=== PATIENT | female | born 1955 | race Caucasian/White ===

== ENCOUNTER 2017-06-12 14:35 | Observation (INO) | payer OTHER, SELFPAY ==
[2017-06-12] VITALS (11 sets, daily range): BP systolic 82–106; BP diastolic 54–67; PULSE 45–81; RESP 16–18; TEMP 36.3–36.9; O2SAT 97–99; BMI 28.6; BMI 26.9
--- NOTE | 2017-06-12 15:07 | RAD_ITS ---
STUDY: X-RAY CHEST REASON FOR EXAM: Female, 62 years old. SYNCOPE TECHNIQUE: Single AP portable view of the chest. COMPARISON: None. FINDINGS: The lungs are clear and expanded. There is no demonstrated pleural abnormality. Normal size heart. Normal mediastinum and carlyle. Normal visualized pulmonary arteries. Normal visualized aortic arch and descending thoracic aorta. Normal visualized thoracic spine. Normal visualized ribs, clavicles, and shoulders. There is no demonstrated abnormality of the visualized soft tissue structures of the upper abdomen. RAD/Chest 1 View (Portable) IMPRESSION: Normal x-ray examination of the chest. Electronically Signed: Huber Hermosillo MD at 16:07 EDT Tel , Service support ,
--- NOTE | 2017-06-12 15:07 | CT_ITS ---
STUDY: CT BRAIN WITHOUT CONTRAST REASON FOR EXAM: Female, 62 years old. Syncopal episode and falling after ophthalmic surgery. Laceration above the left eyebrow. RADIATION DOSAGE (If Supplied By Facility): CTDIvol = ( 44.99 ) mGy, DLP = ( 779.24 ) mGycm TECHNIQUE: Transaxial CT imaging of the brain was performed without administration of intravenous contrast material. Individualized dose optimization techniques were used for this CT. COMPARISON: None. FINDINGS: Normal soft tissue structures. Normal calvarium. Normal size ventricles and extra-axial spaces for the patient's age. Normal white matter tracts of the cerebral hemispheres. Normal basal ganglia and thalami. Normal brainstem. Normal cerebellum. There is no intracranial hemorrhage. There are no findings of an acute ischemic infarction. Moderate mucosal thickening at the base of the right maxillary sinus CT/Brain/Head without Contrast IMPRESSION: Normal unenhanced CT scan of the brain. Moderate mucosal thickening at the base of the right maxillary sinus. Electronically Signed: Mare Levy MD at 15:56 EDT , Service support ,
--- NOTE | 2017-06-12 15:07 | EKG12_ITS ---
Test Reason : HYPOTENSION/FALL Blood Pressure : / mmHG Vent. Rate : 065 BPM Atrial Rate : 065 BPM P-R Int : 144 ms QRS Dur : 086 ms QT Int : 432 ms P-R-T Axes : 057 -11 021 degrees QTc Int : 449 ms Normal sinus rhythm Nonspecific ST and T wave abnormality Abnormal ECG Confirmed by RANDY SANCHEZ, JARED ([id number]), design editor REJI LAGUNAS ([id number] on 06/14/2017 3:39:55 PM Referred By: RYAN HODGES/MALGORZATA Confirmed By:JARED PADILLA MD
--- NOTE | 2017-06-12 15:16 | ED.DCSUM_ITS ---
- ER Visit Summary Date of Service: 06/12/17 Chief Complaint: Syncope History of Present Illness: The patient is a 62 F presents after syncopal episode. Patient had eye surgery this morning per Dr. Salmeron. She had bilateral blepharoplasty. She was given Versed and fentanyl during the procedure. She was sent home and advised to take Tylenol. Upon returning home patient became very dizzy. When she attempted to sit up she had a syncopal episode. Her states it took multiple attempts to get her to the bathroom. She had a syncopal episode while in the bathroom and fell off the toilet. She hit her head and has a laceration to the left eyebrow. She denies chest pain or shortness of breath. She has had similar symptoms in the past when her blood pressure drops she will pass out. She is not on any antihypertensive medications. No anticoagulants. No other complaints. Physical Examination: Blood pressure 82/58, HR 62, RR 18. Patient is afebrile. Alert no acute distress. HEENT exam bilateral eyelid incision clean dry and intact. 2.5 cm laceration to the left eyebrow. Neck is nontender Lungs are clear and equal bilaterally. Heart is regular rate and rhythm. Abdomen is soft nontender nondistended. Extremities are unremarkable. Skin is warm and dry. No focal neurologic deficit. Remainder of exam is unremarkable. Emergency Department Course and Treatment: Patient is given IV fluids. EKG is sinus rate of 65 with no acute ischemic changes. CBC, chemistries unremarkable. Troponin is negative. Orthostatics negative. CT head shows no acute process. Laceration was repaired under sterile conditions. Irrigated with saline, anesthetized with lidocaine. 5, 6-0 simple sutures were placed. She tolerated this well. Blood pressure improved to 90s systolic. Will discuss with the hospitalist for observation. Disposition: Observation Impression: Syncope, left eyebrow laceration, laceration repair This note was generated with [employer] dictation software. It may contain incorrect words, spelling, and punctuation that were not noted in review of the chart prior to signing ED Disposition - Plan for ED Patient: Chief Complaint: Hypotension Referrals: Tani Carlson MD [Primary Care Provider] -
[2017-06-12 15:27] LABS: Absolute Lymphocyte Count 1.32 X10^3/ul (0.83-4.51); Absolute Neutrophil Count 3.2 X10^3/uL (2.0-7.7); Basophil# 0.01 X10^3/uL; Basophil% 0.2 % (0-1); Eosinophil# 0.06 X10^3/uL; Eosinophils% 1.2 % (0-5); Hematocrit 43.5 % (37-47); Hemoglobin 14.8 g/dl (12.0-15.0); Lymphocyte # 1.32 X10^3/ul (4.0); Lymphocyte % 26.6 % (19-41); Mean Corpuscular Hgb 30.8 pg (27.0-32.0); Mean Corpuscular Volume 90.6 fL (81-99); Mean Platelet Vol. 9.3 fl (6.2-12.0); Monocyte# 0.37 X10^3/uL; Monocyte% 7.4 % (0-10); Neutrophil % 64.4 % (47-70); Platelet Count 170 K/mm3 (150-450); RBC Distribution Width CV 11.8 % (11.6-14.6); RBC Distribution Width SD 38.9 fl (35.1-43.9)
[2017-06-12 15:29] LABS: POSITIVE COUNT NO; POSITIVE DIFFERENTIAL NO; POSITIVE MORPHOLOGY NO
[2017-06-12 15:33] LABS: Anion Gap 7 (5-15); BUN 12 mg/dL (7-18); BUN/Creat Ratio 12.7 RATIO (10-20); Calcium,Total 8.6 mg/dL (8.5-10.1); Chloride 102 mmol/L (98-107); Creatinine, Serum 0.94 mg/dL (0.55-1.02); EST Glomerular Filtration Rate 64 mL/min (>60); Est Glom Filt Rate - Afr Amer 78 mL/min (>60); Estimated Creatinine Clearance 54.96 ml/min; Glucose 109 mg/dL (74-106); Potassium 3.5 mmol/L (3.5-5.1); Sodium Level 140 mmol/L (136-145)
[2017-06-12] MEDS: Diphth,Pertuss(Acell),Tet Vac 0.5 ML Vial IM (15:51)
[2017-06-12] MEDS: Ondansetron 4 MG/2 ML Vial IV (16:00)
--- NOTE | 2017-06-12 16:25 | NURSING ---
PCU OBS SYNCOPE, ORTHOSTATIC HYPOTENSION ANNA MARIE
--- NOTE | 2017-06-12 16:42 | PCM.HP.STD ---
<Юлия Pacheco - Last Filed: 06/12/17 17:03> Problem List (1) Syncope Status: Acute History of Present Illness Date of Admission: 06/12/17 Chief Complaint: Syncope The patient is a 62 year old F who presents to the emergency room after syncopal episode this afternoon. Patient had bilateral blepharoplasty earlier this morning at [facility] with Dr. Salmeron. Surgery was without complications. Patient received Versed and fentanyl during the procedure. She was discharged with Tylenol as needed for pain. Patient states she was resting at home on the couch and complained of headache to her . She asked him to help her go to the bathroom. When he assisted her to get up she became very dizzy. They attempted to walk down the hallway and patient's fell to her knees. was able to help patient to the toilet. He went to get her water when she became unconscious and fell off of the toilet, hitting her head. Her called the squad at this time. at bedside states patient has had 2 syncopal episodes over approximate 10 year time period. She has never had workup for these episodes. Patient states she chronically notices she gets dizzy with standing up quickly. She was told by her primary doctor to drink more fluids and move slowly when changing positions. Patient had a laceration on the left brow bone which was repaired with sutures in the ER. Patient denies any cardiac history. She is very active and denies any chronic medical history. Past Medical History Allergies No Known Allergies Allergy (Verified 06/12/17 14:44) Home Medications: Ambulatory Orders Medication Instructions Recorded Ergocalciferol [Vitamin D] 2,000 unit PO DAILY 01/20/14 Multivitamins,Therapeutic 1 tab PO DAILY 01/20/14 [Multivitamin] Folic Acid 800 mg PO DAILY@0800 06/12/17 Tariq/Polymyx B Sulf/Dexameth 1 applicatio TOPICAL TID 06/12/17 [Oimmve-Qbrqf-Odhducw Eye Ointm] Surgical History: - - Bilateral blepharoplasty, tubal ligation, spinal fusion, bunion removal Psychiatric History: No pertinent psych hx MASK INSPECTOR History: No pertinent MASK INSPECTOR history Lives: Spouse/ Significant Other Smoking Status: Never smoker Alcohol: None Drugs: None - *Family History Maternal History Items: Cancer Paternal History Items: No pertinent history Review of Systems Constitutional: Denies: Chills, Fever, Weight Change Eyes: Reports: - - Slight foggy vision-said to be normal by behavioral medical director. HEENT: Denies: Head Aches, Sinus Congestion, Sinus Drainage Cardiovascular: Reports: Syncope. Denies: Chest Pain, Palpitations Respiratory: Denies: Cough, Shortness of breath at rest, Sputum production Gastrointestinal: Denies: Abdominal Pain, Nausea, Vomiting Genitourinary: Denies: Dysuria Musculoskeletal: Denies: Joint Pain, Joint Tenderness Skin: Reports: - - Bilateral high incisions. Denies: Rash, Wounds Neurological: Denies: Numbness, Tingling, Focal weakness Psychiatric: Denies: Anxiety, Depression, Homicidal Ideations, Suicidal Ideations Hematologic/ Lymphatic: Denies: Easy Bruising, Easy Bleeding VTE Information - Inpt Only VTE Present on Admission: No VTE Mechan Device Prophylaxis: SCD's VTE Pharm Prophylaxis ordered?: No Reason prophylaxis not ordered:: Treatment Not Indicated Patient Problems: Active and Suspected Problems Syncope (Acute) - Physical Exam General: Alert, Oriented x3, Cooperative HEENT: Atraumatic, PERRLA, EOMI, Normocephalic, - Neck: Supple, No JVD, Negative Carotid Bruits Lungs: Clear to auscultation, Normal air movement Cardiovascular: Regular rate, Regular Rhythm, Normal S1, Normal S2, No murmurs Abdomen: Bowel Sounds Present, Soft, Non Tender, Non-Distended Extremities: No clubbing, No cyanosis, No edema, Capillary Refill Less than 3 Seconds Skin: - - Bilateral eye incisions with sutures intact. Left cheekbone ecchymosis. Musculoskeletal: No Tenderness to Palpation of Joints or Extremities Neurological: Cranial nerves II-XII grossly intact, Neuro grossly intact Psych/Mental Status: Normal Affect, Appropriate Vital Signs Temp Pulse Resp BP Pulse Ox 97.4 F L 62 18 93/62 97 06/12/17 14:38 06/12/17 16:25 06/12/17 16:25 06/12/17 16:25 06/12/17 16:25 Oxygen Delivery Method Room Air Weight: 75.8 kg Body Mass Index (BMI) 28.6 Laboratory Tests Past 24 Hrs 06/12/17 06/12/17 14:50 14:50 WBC 5.0 RBC 4.80 Hgb 14.8 Hct 43.5 MCV 90.6 MCH 30.8 MCHC 34.0 RDW 11.8 RDW Differential 38.9 Plt Count 170 MPV 9.3 Immature Gran % (Auto) 0.200 Neut % (Auto) 64.4 Lymph % (Auto) 26.6 [place] % (Auto) 7.4 Eos % (Auto) 1.2 Baso % (Auto) 0.2 Absolute Neuts (auto) 3.2 Absolute Lymphs (auto) 1.32 Total Counted Not Reportable Sodium 140 Potassium 3.5 Chloride 102 Carbon Dioxide 31.0 Anion Gap 7 BUN 12 Creatinine 0.94 Estim Creat Clear Calc 54.96 Est GFR (MDRD) Af Amer 78 Est GFR (MDRD) Non-Af 64 BUN/Creatinine Ratio 12.7 Glucose 109 H Calcium 8.6 Troponin I < 0.02 Assessment/Plan Active and Suspected Problems Syncope (Acute) 1. Syncope-suspect secondary to hypotension. EKG on admission without evidence of ischemia. Troponin negative ?1. CT shows no acute process. Blood pressure on admission 82/58. Blood pressure by squad was noted to be 60/40. IV fluids. Orthostatic vitals negative. Repeat in a.m. Trend enzymes. Complete echocardiogram. Check TSH, mag. 2. Status post bilateral blepharoplasty/left eyebrow laceration-left eyebrow laceration secondary to syncopal episode repaired in ER with sutures. Surgical sutures bilateral eyelids intact. Dried blood noted. Patient's to bring in ointment and postop instructions from behavioral medical director which will be resumed. Tylenol as needed for pain. DVT prophylaxis-SCDs. Hold pharmacologic prophylaxis given eye surgery this a.m. This patient was seen by ROBBY Cisneros under the supervision of Dr. Feldman. <Eliceo Feldman - Last Filed: 06/12/17 18:34> History of Present Illness Seen and examined Patient felt dizzy and lightheaded and passed out. Patient did not eat or drink since yesterday for surgery today and also had Versed and fentanyl as mentioned above. She had similar syncopal episodes in the past when she was n.p.o. for her surgery [] Past Medical History Allergies No Known Allergies Allergy (Verified 06/12/17 14:44) - Physical Exam Lungs: Clear to auscultation, Normal air movement Cardiovascular: Regular rate, Regular Rhythm, Normal S1, Normal S2, No murmurs, - - Normal sinus rhythm on the monitor Vital Signs Temp Pulse Resp BP Pulse Ox 98.4 F 65 16 95/54 L 99 06/12/17 17:10 06/12/17 17:10 06/12/17 17:10 06/12/17 17:10 06/12/17 17:10 Oxygen Delivery Method Room Air Weight: 156 lb 15.506 oz Body Mass Index (BMI) 26.9 Laboratory Tests Past 24 Hrs 06/12/17 18:15 Urine Color Pending Urine Clarity Pending Urine pH Pending Ur Specific [place] Pending Urine Protein Pending Urine Glucose (UA) Pending Urine Ketones Pending Urine Occult Blood Pending Urine Nitrite Pending Urine Bilirubin Pending Urine Urobilinogen Pending Ur Leukocyte Esterase Pending Urine RBC Pending Urine WBC Pending Ur Squamous Epith Cells Pending Urine Bacteria Pending Urine Mucus Pending Assessment/Plan This patient was seen in conjunction with DYNAMICISTЮлия. I have independently interviewed and examined the patient and reviewed pertinent history, examination findings, laboratory and plan of management. I have reviewed the note and agree with the documented findings with the few additional points. In brief, patient is admitted for In brief, patient is admitted for syncope most probably from hypotension as mentioned above. She never had echocardiogram at this in our system. We will do basic workup as mentioned above. I have discussed my assessment with DYNAMICISTЮлия and orders have been reviewed. Code Visit OBSV E&M: 44846 Initial observation care L3
--- NOTE | 2017-06-12 16:55 | ECHOD_ITS ---
Reason For Study: SYNCOPE Procedure This was a 2D Doppler, Color Flow transthoracic echocardiogram. Exam performed portable in patient room. Left Ventricle Normal size and thickness. The estimated ejection fraction is 65 %. Normal diastology for age. No regional wall motion abnormalities noted. Right Ventricle Mildly dilated right ventricle. Normal systolic function. Atria Normal left atrium. Normal right atrium. Normal atrial septum. Mitral Valve The mitral valve is structurally normal. No prolapse or stenosis seen. Tricuspid Valve Normal tricuspid valve. Trivial tricuspid valve insufficiency. Right ventricular systolic pressure estimated to be 36 mmHg. Aortic Valve Normal aortic valve. Trisinus/trileaflet aortic valve. Pulmonic Valve Normal pulmonic valve. Great Vessels Normal aortic root. Normal arch. Normal inferior vena cava. Inferior vena cava collapse with sniff. Pericardium/Pleural No pericardial effusion. MMode/2D Measurements & Calculations LVIDd: 4.6 cm IVSd: 0.94 cm Ao root diam: 3.1 cm LVIDs: 3.0 cm LVPWd: 1.00 cm RVDd: 3.9 cm FS: 34.8 % LAV(MOD-bp): 47.2 ml LVAd ap4: 26.9 cm2 SV(MOD-sp4): 46.9 ml LAV(MOD-bp) Indexed: 26.8 ml/m2 EDV(MOD-sp4): 78.5 ml LAV(MOD-sp2): 45.5 ml EDV(sp4-el): 83.6 ml LAV(MOD-sp4): 46.7 ml LVAs ap4: 15.2 cm2 ESV(MOD-sp4): 31.6 ml ESV(sp4-el): 32.3 ml EF(MOD-sp4): 59.8 % EF(sp4-el): 61.3 % SV(sp4-el): 51.2 ml LA A4 area: 17.9 cm2 RA A4 area: 16.8 cm2 Doppler Measurements & Calculations MV E max yunior: 79.3 cm/sec Lat Peak E' Yunior: 11.2 cm/sec Med Peak E' Yunior: 11.0 cm/sec MV A max yunior: 65.4 cm/sec E/E' lat: 7.1 E/E' med: 7.2 MV E/A: 1.2 Ao V2 max: 126.7 cm/sec LV V1 max: 119.3 cm/sec TR max yunior: 262.2 cm/sec Ao max P.4 mmHg LV V1 max P.7 mmHg TR max P.6 mmHg Interpretation Summary The estimated ejection fraction is 65 %. Mildly dilated right ventricle. Trivial tricuspid valve insufficiency. Right ventricular systolic pressure estimated to be 36 mmHg. No regional wall motion abnormalities noted. There is no comparison study available. Ordering Physician: ROBBY Cisneros Referring Physician: MARIA EUGENIA PEACE Performed By: Eleanor Cochran, NEMO, RVT
--- NOTE | 2017-06-12 16:57 | HP.PCM_ITS ---
<Юлия Pacheco - Last Filed: 06/12/17 17:03> Problem List (1) Syncope Status: Acute History of Present Illness Date of Admission: 06/12/17 Chief Complaint: Syncope The patient is a 62 year old F who presents to the emergency room after syncopal episode this afternoon. Patient had bilateral blepharoplasty earlier this morning at [facility] with Dr. Salmeron. Surgery was without complications. Patient received Versed and fentanyl during the procedure. She was discharged with Tylenol as needed for pain. Patient states she was resting at home on the couch and complained of headache to her . She asked him to help her go to the bathroom. When he assisted her to get up she became very dizzy. They attempted to walk down the hallway and patient's fell to her knees. was able to help patient to the toilet. He went to get her water when she became unconscious and fell off of the toilet, hitting her head. Her called the squad at this time. at bedside states patient has had 2 syncopal episodes over approximate 10 year time period. She has never had workup for these episodes. Patient states she chronically notices she gets dizzy with standing up quickly. She was told by her primary doctor to drink more fluids and move slowly when changing positions. Patient had a laceration on the left brow bone which was repaired with sutures in the ER. Patient denies any cardiac history. She is very active and denies any chronic medical history. 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 HEENT: Denies: Head Aches, Sinus Congestion, Sinus Drainage Cardiovascular: Reports: Syncope. Denies: Chest Pain, Palpitations Respiratory: Denies: Cough, Shortness of breath at rest, Sputum production Gastrointestinal: Denies: Abdominal Pain, Nausea, Vomiting Genitourinary: Denies: Dysuria Musculoskeletal: Denies: Joint Pain, Joint Tenderness Skin: Reports: - - Bilateral high incisions. Denies: Rash, Wounds Neurological: Denies: Numbness, Tingling, Focal weakness Psychiatric: Denies: Anxiety, Depression, Homicidal Ideations, Suicidal Ideations Hematologic/ Lymphatic: Denies: Easy Bruising, Easy Bleeding VTE Information - Inpt Only VTE Present on Admission: No VTE Mechan Device Prophylaxis: SCD's VTE Pharm Prophylaxis ordered?: No Reason prophylaxis not ordered:: Treatment Not Indicated Patient Problems: Active and Suspected Problems Syncope (Acute) - Physical Exam General: Alert, Oriented x3, Cooperative HEENT: Atraumatic, PERRLA, EOMI, Normocephalic, - Neck: Supple, No JVD, Negative Carotid Bruits Lungs: Clear to auscultation, Normal air movement Cardiovascular: Regular rate, Regular Rhythm, Normal S1, Normal S2, No murmurs Abdomen: Bowel Sounds Present, Soft, Non Tender, Non-Distended Extremities: No clubbing, No cyanosis, No edema, Capillary Refill Less than 3 Seconds Skin: - - Bilateral eye incisions with sutures intact. Left cheekbone ecchymosis. Musculoskeletal: No Tenderness to Palpation of Joints or Extremities Neurological: Cranial nerves II-XII grossly intact, Neuro grossly intact Psych/Mental Status: Normal Affect, Appropriate Vital Signs Temp Pulse Resp BP Pulse Ox 97.4 F L 62 18 93/62 97 06/12/17 14:38 06/12/17 16:25 06/12/17 16:25 06/12/17 16:25 06/12/17 16:25 Oxygen Delivery Method Room Air Weight: 75.8 kg Body Mass Index (BMI) 28.6 Laboratory Tests Past 24 Hrs 06/12/17 06/12/17 14:50 14:50 WBC 5.0 RBC 4.80 Hgb 14.8 Hct 43.5 MCV 90.6 MCH 30.8 MCHC 34.0 RDW 11.8 RDW Differential 38.9 Plt Count 170 MPV 9.3 Immature Gran % (Auto) 0.200 Neut % (Auto) 64.4 Lymph % (Auto) 26.6 [place] % (Auto) 7.4 Eos % (Auto) 1.2 Baso % (Auto) 0.2 Absolute Neuts (auto) 3.2 Absolute Lymphs (auto) 1.32 Total Counted Not Reportable Sodium 140 Potassium 3.5 Chloride 102 Carbon Dioxide 31.0 Anion Gap 7 BUN 12 Creatinine 0.94 Estim Creat Clear Calc 54.96 Est GFR (MDRD) Af Amer 78 Est GFR (MDRD) Non-Af 64 BUN/Creatinine Ratio 12.7 Glucose 109 H Calcium 8.6 Troponin I < 0.02 Assessment/Plan Active and Suspected Problems Syncope (Acute) 1. Syncope-suspect secondary to hypotension. EKG on admission without evidence of ischemia. Troponin negative ?1. CT shows no acute process. Blood pressure on admission 82/58. Blood pressure by squad was noted to be 60/40. IV fluids. Orthostatic vitals negative. Repeat in a.m. Trend enzymes. Complete echocardiogram. Check TSH, mag. 2. Status post bilateral blepharoplasty/left eyebrow laceration-left eyebrow laceration secondary to syncopal episode repaired in ER with sutures. Surgical sutures bilateral eyelids intact. Dried blood noted. Patient's to bring in ointment and postop instructions from broadcast maintenance technician which will be resumed. Tylenol as needed for pain. DVT prophylaxis-SCDs. Hold pharmacologic prophylaxis given eye surgery this a.m. This patient was seen by ROBBY Cisneros under the supervision of Dr. Feldman. <Eliceo Feldman - Last Filed: 06/12/17 18:34> History of Present Illness Seen and examined Patient felt dizzy and lightheaded and passed out. Patient did not eat or drink since yesterday for surgery today and also had Versed and fentanyl as mentioned above. She had similar syncopal episodes in the past when she was n.p.o. for her surgery [] Past Medical History Allergies No Known Allergies Allergy (Verified 06/12/17 14:44) - Physical Exam Lungs: Clear to auscultation, Normal air movement Cardiovascular: Regular rate, Regular Rhythm, Normal S1, Normal S2, No murmurs, - - Normal sinus rhythm on the monitor Vital Signs Temp Pulse Resp BP Pulse Ox 98.4 F 65 16 95/54 L 99 06/12/17 17:10 06/12/17 17:10 06/12/17 17:10 06/12/17 17:10 06/12/17 17:10 Oxygen Delivery Method Room Air Weight: 156 lb 15.506 oz Body Mass Index (BMI) 26.9 Laboratory Tests Past 24 Hrs 06/12/17 18:15 Urine Color Pending Urine Clarity Pending Urine pH Pending Ur Specific [place] Pending Urine Protein Pending Urine Glucose (UA) Pending Urine Ketones Pending Urine Occult Blood Pending Urine Nitrite Pending Urine Bilirubin Pending Urine Urobilinogen Pending Ur Leukocyte Esterase Pending Urine RBC Pending Urine WBC Pending Ur Squamous Epith Cells Pending Urine Bacteria Pending Urine Mucus Pending Assessment/Plan This patient was seen in conjunction with DOUBLE ENDING MACHINE OPERATORЮлия. I have independently interviewed and examined the patient and reviewed pertinent history, examination findings, laboratory and plan of management. I have reviewed the note and agree with the documented findings with the few additional points. In brief, patient is admitted for In brief, patient is admitted for syncope most probably from hypotension as mentioned above. She never had echocardiogram at this in our system. We will do basic workup as mentioned above. I have discussed my assessment with DOUBLE ENDING MACHINE OPERATORЮлия and orders have been reviewed. Code Visit OBSV E&M: 27267 Initial observation care L3
[2017-06-12] MEDS: 0.9% Normal Saline 1,000 ML 1000 ML IV (17:50)
[2017-06-12 18:15] LABS: Magnesium 2.1 mg/dL (1.6-2.6); Thyroid Stim Hormone (TSH) 8.33 uIU/mL (0.358-3.74)
[2017-06-12 18:25] LABS: Bacteria 0 SEEN /hpf (None Seen); Mucous, Urine 0 SEEN /hpf (<or=2+); Red Blood Cells-Urine 0 SEEN /hpf (0-5)
[2017-06-12] MEDS: 0.9% Normal Saline 1,000 ML 125 ML IV (18:51)
[2017-06-12 19:21] LABS: Color, Urine Yellow (Yellow); Glucose, Dipstick Normal (Normal); Ketone-Dipstick Negative (Negative); Leukocyte Esterase-Dipstick 25 /ul (Negative); Nitrite-Dipstick Negative (Negative); Occult Blood-Urine Negative /ul (Negative); Protein-Dipstick 15 mg/dl (Negative); Urine Bilirubin Dipstick Negative (Negative); Urine Clarity Clear (Clear); Urine Urobilinogen Normal (Normal)
[2017-06-12 19:21] LABS: Lactic Acid 1.2 mmol/L (0.4-2.0)
[2017-06-12 20:06] LABS: Squamous Epithelial Cells - UA 0-5 SEEN /hpf (5-10); White Blood Cells 0-5 SEEN /hpf (0-5)
[2017-06-12] MEDS: Neomycin/Polymyxin/Dexameth OINT 3.5GM OPTH.TUBE 1 APPLIC EACH EYE (22:36)
[2017-06-13] MEDS: 0.9% Normal Saline 1,000 ML 125 ML IV ×2 (02:38→11:00)
[2017-06-13 03:00] VITALS: PULSE 57
[2017-06-13 05:02] VITALS: BP 111/69; BP 115/70; BP 121/72; PULSE 60; PULSE 62; PULSE 66
[2017-06-13 05:05] VITALS: BP 111/69; PULSE 60; RESP 16; TEMP 36.7; O2SAT 98
[2017-06-13] MEDS: Neomycin/Polymyxin/Dexameth OINT 3.5GM OPTH.TUBE 1 APPLIC EACH EYE ×2 (05:15→13:22)
[2017-06-13] MEDS: Acetaminophen 325 MG Tablet 650 MG PO ×2 (05:18→13:26)
[2017-06-13 07:16] VITALS: PULSE 57
[2017-06-13 11:05] VITALS: BP 109/78; PULSE 61; RESP 16; TEMP 36.9; O2SAT 98
[2017-06-13 11:17] LABS: T4 Free Direct 0.97 ng/dL (0.76-1.46)
[2017-06-13 11:46] VITALS: PULSE 76
--- NOTE | 2017-06-13 14:19 | PN_ITS ---
Patient Problems: Active and Suspected Problems Syncope (Acute) Subjective: Pt resting comfortably in bed today. No dizziness or LH. No further syncopal episodes. Pt was at home yesterday after BL blepharoplasty. Vision is blurry as she is applying ointment to her eyes. During episodes she noted increased pain in her eyes. She would become dizzy/LH, presyncopal without complete LOC. She cannot remember the events but states she was awake. Last episode occurred when on the toilet bearing down. She has had similar episodes in the past. - Physical Exam General: Alert, Oriented x3, Cooperative HEENT: Atraumatic, PERRLA, EOMI, Normocephalic Neck: Supple, No JVD, Negative Carotid Bruits Lungs: Clear to auscultation, Normal air movement Cardiovascular: Regular rate, No murmurs Abdomen: Bowel Sounds Present, Soft, Non Tender Extremities: No edema, Capillary Refill Less than 3 Seconds Skin: No rashes, No breakdown Musculoskeletal: No Tenderness to Palpation of Joints or Extremities Neurological: Cranial nerves II-XII grossly intact Psych/Mental Status: Normal Affect, Appropriate, Alert and oriented to time, place, person, mood and affect Vital Signs Temp Pulse Resp BP Pulse Ox 98.4 F 76 16 109/78 98 06/13/17 11:05 06/13/17 11:46 06/13/17 11:05 06/13/17 11:05 06/13/17 11:05 Oxygen Delivery Method Room Air Weight: 71.2 kg Body Mass Index (BMI) 26.9 Orthostatic Vital Signs Start: 06/13/17 05:02 Freq: q24h Status: Active Protocol: Activity Type Activity Date Activity User E-Sign Co-Sign Detail Recorded Client Recorded Date Recorded By Document 06/13/17 05:02 KDB [id number] 06/13/17 05:13 KDB 06/13/17 05:02 Orthostatic Vitals Standing -Blood Pressure (90/60-120/80) 121/72 H -Extremity Use Left Arm -Pulse Rate (60-100) 66 Sitting -Blood Pressure (90/60-120/80) 115/70 -Extremity Use Left Arm -Pulse Rate (60-100) 62 Lying -Blood Pressure (90/60-120/80) 111/69 -Extremity Use Left Arm -Pulse Rate (60-100) 60 Intake and Output for Last 24 Hours 06/11/17 06/12/17 06/13/17 23:59 23:59 23:59 Intake Total 2244 / 2244 1666 / 1666 Balance 2244 / 2244 1666 / 1666 Laboratory Tests Past 24 Hrs 06/12/17 06/12/17 06/12/17 18:15 18:29 18:29 Lactic Acid 1.2 Troponin I < 0.02 Free T4 Urine Color Yellow Urine Clarity Clear Urine pH 7.0 Ur Specific [place] 1.010 Urine Protein 15 H Urine Glucose (UA) Normal Urine Ketones Negative Urine Occult Blood Negative Urine Nitrite Negative Urine Bilirubin Negative Urine Urobilinogen Normal Ur Leukocyte Esterase 25 H Urine RBC 0 SEEN Urine WBC 0-5 SEEN Ur Squamous Epith Cells 0-5 SEEN Urine Bacteria 0 SEEN Urine Mucus 0 SEEN 06/12/17 06/13/17 06/13/17 22:36 05:08 05:08 Lactic Acid Troponin I < 0.02 < 0.02 Free T4 0.97 Urine Color Urine Clarity Urine pH Ur Specific [place] Urine Protein Urine Glucose (UA) Urine Ketones Urine Occult Blood Urine Nitrite Urine Bilirubin Urine Urobilinogen Ur Leukocyte Esterase Urine RBC Urine WBC Ur Squamous Epith Cells Urine Bacteria Urine Mucus Medical Necessity - Tobacco Use Smoking Status: Never smoker Assessment/Plan Active and Suspected Problems Syncope (Acute) 1. Acute syncope 2/2 vasovagal 2/2 increased occular pressure, pain, bearing down/sedation earlier in the day. Orthos now neg. Trop neg. Tele / EKG neg. Mild sinus tricia no block. TSH high but T4 normal. Echo with preserved EF, normal diastology, no segmental abnormalities, mildly dilated right ventricle, trivial TVI, RVSP 36 mmHg. UA neg. Reambulate pt today. Urinalysis negative, lactic acid negative at admission. Magnesium normal. -CT of the brain with moderate mucosal thickening at the base of the right maxillary sinus. Chest x-ray normal. 2. Status post bilateral blepharoplasty postop day 1. Continue eye care as per ophthalmology. Maintain normal follow-up at discharge.3 3. Eyebrow laceration-sutured. Occurred after fall. DVT prophylaxis: SCDs DC planning: Ambulate, then likely home. This patient was seen by Rl Bagley PA-C under the supervision of Doctor Watts.
--- NOTE | 2017-06-13 16:01 | PCM.DC ---
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 will be placed as outpatient on saturday06/17/2017 Allergies/Adverse Reactions: Allergies No Known Allergies Allergy (Verified 06/12/17 14:44) Medications to take at Discharge Ergocalciferol [Vitamin D] 2,000 unit PO DAILY 01/20/14 Multivitamins,Therapeutic [Multivitamin] 1 tab PO DAILY 01/20/14 Folic Acid 800 mg PO DAILY@0800 06/12/17 Tariq/Polymyx B Sulf/Dexameth [Hdofyk-Tlfjg-Pwfvhiu Eye Ointm] 1 applicatio TOPICAL TID 06/12/17 Primary Care Physician: Tani Carlson MD [Primary Care Provider] - Please follow up with your Primary Care Physician in: 1-2 weeks Please Follow Up With: Cabrera Jeffery MD When: 2-4 weeks Proposed Discharge Date: 06/13/17
--- NOTE | 2017-06-13 16:04 | DCINST_ITS ---
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 on saturday06/17/2017 Allergies/Adverse Reactions: Allergies No Known Allergies Allergy (Verified 06/12/17 14:44) Medications to take at Discharge Ergocalciferol [Vitamin D] 2,000 unit PO DAILY 01/20/14 Multivitamins,Therapeutic [Multivitamin] 1 tab PO DAILY 01/20/14 Folic Acid 800 mg PO DAILY@0800 06/12/17 Tariq/Polymyx B Sulf/Dexameth [Ocemco-Zdehz-Zzsjitf Eye Ointm] 1 applicatio TOPICAL TID 06/12/17 Primary Care Physician: Tani Carlson MD [Primary Care Provider] - Please follow up with your Primary Care Physician in: 1-2 weeks Please Follow Up With: Cabrera Jeffery MD When: 2-4 weeks Proposed Discharge Date: 06/13/17
--- NOTE | 2017-06-13 16:04 | PCM.DC.SUM ---
<Rl Bagley - Last Filed: 06/13/17 16:04> Discharge Date and Diagnosis Date of Admission: 06/12/17 Date of Discharge: 06/13/17 - Primary Discharge Diagnosis Active and Suspected Problems Syncope (Acute) - vasovagal s/p blepharoplasty (BL) Hospital Course and Treatment Imaging Results: Echo: Interpretation Summary The estimated ejection fraction is 65 %. Mildly dilated right ventricle. Trivial tricuspid valve insufficiency. Right ventricular systolic pressure estimated to be 36 mmHg. No regional wall motion abnormalities noted. There is no comparison study available. CT/Brain/Head without Contrast IMPRESSION: Normal unenhanced CT scan of the brain. Moderate mucosal thickening at the base of the right maxillary sinus. RAD/Chest 1 View (Portable) IMPRESSION: Normal x-ray examination of the chest. Operations: None Procedures: 2-D Echocardiogram Summary of Care Provided: Physical exam on day of discharge: Exceedingly progress note Hospital course: The patient is a 62 year old F who underwent a BL blepharoplasty the day of presentation, who presented to the hospital after passing out multiple times after her surgery at home. She would develop pain in her eyes and then slump over mostly unconscious briefly. She could not remember what she was saying or doing after slumping over. The last, most severe time was while she was having a BM. She had a hx of passing out when she experienced pain. She had a negative EKG, neg troponin, neg CT brain. She was admitted and maintained on tele. She had no further symptoms after admission. She had negative echocardiogram and negative cycled enzymes. Dr. Watts discussed her case with Dr. Jeffery who recommended she have a heart monitor as an outpatient for a month. We attempted to arrange this however they were unable to schedule this until 06.16.2017. She will come back on this day and have it placed as an outpatient. She was discharged home in stable condition. Please follow up with your sugeon as directed, your PCP in 1-2 weeks, and with Dr. Jeffery in 2-4 weeks. This patient was seen by Rl Bagley PA-C under the supervision of Doctor Watts.] Discharge Diet: No Restrictions Discharge Activity: Return to Normal Activity Home Medications: Medications to take at Discharge Ergocalciferol [Vitamin D] 2,000 unit PO DAILY 01/20/14 Multivitamins,Therapeutic [Multivitamin] 1 tab PO DAILY 01/20/14 Folic Acid 800 mg PO DAILY@0800 06/12/17 Tariq/Polymyx B Sulf/Dexameth [Lkjqhx-Nlhqv-Cbqnmrp Eye Ointm] 1 applicatio TOPICAL TID 06/12/17 Primary Care Physician: Tani Carlson MD [Primary Care Provider] - Please follow up with your Primary Care Physician in: 1-2 weeks Please Follow Up With: Cabrera Jeffery MD When: 2-4 weeks Disposition: Home Minutes spent on discharge:: 35 Patient Condition:: Stable Medical Necessity - Tobacco Use Smoking Status: Never smoker Meaningful Use Info Meaningful Use Diagnoses (Choose all that apply): None applicable <Angelia Watts - Last Filed: 06/13/17 22:17> Hospital Course and Treatment Summary of Care Provided: The patient is a 62 year old F [] Code Visit Inpatient E&M: 27964 Disch Hosp
--- NOTE | 2017-06-13 16:13 | DS.PCM_ITS ---
<Rl Bagley - Last Filed: 06/13/17 16:04> Discharge Date and Diagnosis Date of Admission: 06/12/17 Date of Discharge: 06/13/17 - Primary Discharge Diagnosis Active and Suspected Problems Syncope (Acute) - vasovagal s/p blepharoplasty (BL) Hospital Course and Treatment Imaging Results: Echo: Interpretation Summary The estimated ejection fraction is 65 %. Mildly dilated right ventricle. Trivial tricuspid valve insufficiency. Right ventricular systolic pressure estimated to be 36 mmHg. No regional wall motion abnormalities noted. There is no comparison study available. CT/Brain/Head without Contrast IMPRESSION: Normal unenhanced CT scan of the brain. Moderate mucosal thickening at the base of the right maxillary sinus. RAD/Chest 1 View (Portable) IMPRESSION: Normal x-ray examination of the chest. Operations: None Procedures: 2-D Echocardiogram Summary of Care Provided: Physical exam on day of discharge: Exceedingly progress note Hospital course: The patient is a 62 year old F who underwent a BL blepharoplasty the day of presentation, who presented to the hospital after passing out multiple times after her surgery at home. She would develop pain in her eyes and then slump over mostly unconscious briefly. She could not remember what she was saying or doing after slumping over. The last, most severe time was while she was having a BM. She had a hx of passing out when she experienced pain. She had a negative EKG, neg troponin, neg CT brain. She was admitted and maintained on tele. She had no further symptoms after admission. She had negative echocardiogram and negative cycled enzymes. Dr. Watts discussed her case with Dr. Jeffery who recommended she have a heart monitor as an outpatient for a month. We attempted to arrange this however they were unable to schedule this until 06.16.2017. She will come back on this day and have it placed as an outpatient. She was discharged home in stable condition. Please follow up with your sugeon as directed, your PCP in 1-2 weeks, and with Dr. Jeffery in 2-4 weeks. This patient was seen by Rl Bagley PA-C under the supervision of Doctor Watts.] Discharge Diet: No Restrictions Discharge Activity: Return to Normal Activity Home Medications: Medications to take at Discharge Ergocalciferol [Vitamin D] 2,000 unit PO DAILY 01/20/14 Multivitamins,Therapeutic [Multivitamin] 1 tab PO DAILY 01/20/14 Folic Acid 800 mg PO DAILY@0800 06/12/17 Tariq/Polymyx B Sulf/Dexameth [Mhjaph-Xsnsq-Ewphpuf Eye Ointm] 1 applicatio TOPICAL TID 06/12/17 Primary Care Physician: Tani Carlson MD [Primary Care Provider] - Please follow up with your Primary Care Physician in: 1-2 weeks Please Follow Up With: Cabrera Jeffery MD When: 2-4 weeks Disposition: Home Minutes spent on discharge:: 35 Patient Condition:: Stable Medical Necessity - Tobacco Use Smoking Status: Never smoker Meaningful Use Info Meaningful Use Diagnoses (Choose all that apply): None applicable <Angelia Watts - Last Filed: 06/13/17 22:17> Hospital Course and Treatment Summary of Care Provided: The patient is a 62 year old F [] Code Visit Inpatient E&M: 62170 Disch Hosp
== END 2017-06-13 17:20 | disposition home or self-care (01) ==
LOC: ED 16:24 → PCU 16:28
PROVIDERS: Nurse Practitioner Family; Physician Assistant; Admitting Provider Internal Medicine; Emergency Provider Emergency Medicine; Family Provider Family Medicine; PCP Family Medicine; Visit Provider Internal Medicine
DX: R55 Syncope and collapse (principal); Z98.890 Other specified postprocedural states; S01.112A Laceration without foreign body of left eyelid and periocular area, initial encounter; W18.11XA Fall from or off toilet without subsequent striking against object, initial encounter; Y93.89 Activity, other specified; Y92.002 Bathroom of unspecified non-institutional (private) residence as the place of occurrence of the external cause; Z23 Encounter for immunization; I07.1 Rheumatic tricuspid insufficiency; Z79.899 Other long term (current) drug therapy
CPT/HCPCS: 12011; 36415; 70450; 71045; 80048; 81001; 83605; 83735; 84439; 84443; 84484; 85025; 90471; 90715; 93005; 93306; 96361; 96374; 99218; 99285; J7030; G0378; J2405

== ENCOUNTER 2017-10-10 08:26 | Day surgery (SDC) | payer OTHER, SELFPAY ==
[2017-10-10] VITALS (7 sets, daily range): BP systolic 85–109; BP diastolic 47–67; PULSE 56–62; RESP 16; TEMP 36.4–36.9; O2SAT 99–100; BMI 26.6
--- NOTE | 2017-10-10 09:06 | PCM.HP.STD ---
Problem List (1) Screen for colon cancer Status: Acute History of Present Illness Date of Admission: 10/10/17 The patient is a 62 year old F who presents for screening colonoscopy. 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 Smoking Status: Never smoker - *Family History Maternal History Items: Cancer Paternal History Items: No pertinent history Review of Systems Constitutional: Denies: Chills, Fever, Weight Change Cardiovascular: Denies: Chest Pain, Chest Pressure, Chest Tightness, Palpitations Respiratory: Denies: Cough, Hemoptysis, Shortness of breath at rest, Shortness of breath upon exertion, Wheezing Gastrointestinal: Denies: Abdominal Pain, Constipation, Diarrhea, Hematemesis, Nausea, Melena, Vomiting VTE Information - Inpt Only VTE Present on Admission: No VTE Mechan Device Prophylaxis: None VTE Pharm Prophylaxis ordered?: No Reason prophylaxis not ordered:: Treatment Not Indicated Patient Problems: Active and Suspected Problems Screen for colon cancer (Acute) - Physical Exam General: Alert, Oriented x3 Lungs: Clear to auscultation Cardiovascular: Regular rate, Regular Rhythm, No murmurs Abdomen: Bowel Sounds Present, Soft, Non Tender, Non-Distended Vital Signs Temp Pulse Resp BP Pulse Ox 97.6 F L 56 L 16 109/67 100 10/10/17 08:45 10/10/17 08:45 10/10/17 08:45 10/10/17 08:45 10/10/17 08:45 Oxygen Delivery Method Room Air Weight: 150 lb 12.739 oz Body Mass Index (BMI) 26.6 Assessment/Plan All Active Problems Syncope (Acute) Screen for colon cancer (Acute) Postmenopausal bleeding (Acute) Is to perform a colonoscopy on the patient. Risk benefits have been reviewed with the patient patient agrees to proceed.
--- NOTE | 2017-10-10 09:29 | PCM.OPRPT ---
Problem List (1) Screen for colon cancer Status: Acute Report of Operation Date of Procedure: 10/10/17 Pre-Operative Diagnosis: Screening colonoscopy Post-Operative Diagnosis: Same Surgery/Procedure Performed:: Colonoscopy Type of Anesthesia:: MAC Anesthesiologist: Rylan Mercado Description of Procedure: Patient was brought into the endoscopy suite placed in the left lateral decubitus position. She was given graded anesthesia. Scope was inserted in the rectum. It was directed through the rectum, sigmoid colon, descending colon, transverse colon, ascending colon, to the cecum without difficulty operative findings: 1. Cecum: Normal appearance no mass lesions normal ileocecal valve. 2. Ascending colon: Normal appearance no mass lesions 3. Transverse colon: Normal appearance no mass lesions 4. Descending colon: Normal appearance no mass lesions. 5. Sigmoid colon: Normal appearance no mass lesions of few diverticuli identified. Rectum: Normal appearance no mass lesions internal hemorrhoids were identified no signs of bleeding. Scope was withdrawn digital rectal exam was performed showing a smooth anus with no nodules. Patient will need another colonoscopy in 10 years. - Admit VTE Documentation VTE Present on Admission: No VTE Mechan Device Prophylaxis: None VTE Pharm Prophylaxis ordered?: No Reason prophylaxis not ordered:: Treatment Not Indicated
== END 2017-10-10 10:31 | disposition home or self-care (01) ==
LOC: EN 08:27 → AC 08:28
PROVIDERS: Family Provider Family Medicine; PCP Family Medicine; Visit Provider Surgery
PROC: 0DJD8ZZ Inspection of Lower Intestinal Tract, Via Natural or Artificial Opening Endoscopic (ICD-10-PCS; CPT 45378; principal; 2017-10-10 09:25)
DX: Z12.11 Encounter for screening for malignant neoplasm of colon (principal); K64.8 Other hemorrhoids
CPT/HCPCS: 45378; J7120; J1610

== ENCOUNTER → 2018-01-09 11:56 | Outpatient (CLI) | payer OTHER, SELFPAY ==
[2017-11-07 10:14] VITALS: BMI 28.1
[2018-01-12 10:21] LABS: HPV Reflexed? NOT INDICATED
--- OUTSIDE RECORDS SUMMARY | 2018-03-06 15:17 | XMS RPT_ITS ---
:1955 Author Organization OHIP Support Name Relationship Address Phone CURRAN, LLOYD Unavailable [address] + [place] [address] R Unavailable Unavailable Unavailable CURRAN, LLOYD Unavailable [address] + [place] [address] R Unavailable Unavailable Unavailable CURRAN, LLOYD Unavailable [address] + [place] [address] R Unavailable Unavailable Unavailable CURRAN, LLOYD Unavailable [address] + [place] [address] R Unavailable Unavailable Unavailable CURRAN, LLOYD Unavailable [address] + [place] [address] R Unavailable Unavailable Unavailable CURRAN, LLOYD Unavailable [address] + [place] [address] R Unavailable Unavailable Unavailable CURRAN, LLOYD Unavailable [address] + [place] [address] R Unavailable Unavailable Unavailable CURRAN, LLOYD Unavailable [address] + [place] [address] R Unavailable Unavailable Unavailable CURRAN, LLOYD Unavailable [address] + [place] [address] R Unavailable Unavailable Unavailable CURRAN, LLOYD Unavailable [address] + [place] [address] R Unavailable Unavailable Unavailable CURRAN, LLOYD Unavailable [address] + [place] [address] R Unavailable Unavailable Unavailable CURRAN, LLOYD Unavailable [address] + [place] [address] R Unavailable Unavailable Unavailable CURRAN, LLOYD Unavailable [address] + [place] [address] R Unavailable Unavailable Unavailable Care Team Providers Name Role Phone MARIA EUGENIA CARLSON () Attending Unavailable MARIA EUGENIA CARLSON) Referring Unavailable MARIA EUGENIA CARLSON) Referring Unavailable MARIA EUGENIA CARLSON () Attending Unavailable MARIA EUGENIA CARLSON () Referring Unavailable AILYN CARMICHAEL (JOCELYN) Referring Unavailable Frank Young Attending Unavailable Bursley, Tani Referring Unavailable Amina Jasmine Attending Unavailable Bursley, Tani Primary Care Unavailable Bursley, Tani Primary Care Unavailable Gaston, Eliceo Admitting Unavailable Paintsil, [place] Attending Unavailable Gaston, Eliceo Admitting Unavailable Bursley, Tani Primary Care Unavailable Gaston, Eliceo Consulting Unavailable Gaston, Eliceo Attending Unavailable Gaston, Eliceo Admitting Unavailable Kevyn, Rl Attending Unavailable Bursley, Tani Primary Care Unavailable Paintsil, [place] Consulting Unavailable Bursley, Tani Primary Care Unavailable Kevyn, Rl Attending Unavailable Neno Bagleyy Referring Unavailable Sean Gentile Attending Unavailable Gaston, Eliceo Referring Unavailable Cabrera Jeffery Attending Unavailable Nurse, Surgery Attending Unavailable Bursley, Tani Referring Unavailable Sean Schumacher Attending Unavailable Sean Schumacher Referring Unavailable Bursley, Tani Primary Care Unavailable Sean Schumacher Attending Unavailable Mg Green Attending Unavailable Bursley, Tani Referring Unavailable Amina Jasmine Attending Unavailable Bursley, Tani Primary Care Unavailable PROBLEMS PROBLEMS DATE TYPE CONDITION / CODE ATTENDING STATUS SOURCE 01/24/2018 Unknown J20.9 - Acute Frank Young Active [place] bronchitis, Community unspecified / Hospital J20.9(ICD-10) Repository 11/05/2017 Active 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 / [facility] [place] D75.1(ICD-10) Repository 11/04/2017 Unknown Z12.11 - Encounter Sean Shcumacher Active [place] for screening for Community malignant neoplasm [facility] / Repository Z12.11(ICD-10) 04/16/2012 Active Vitamin D NA Active [facility] deficiency, [facility] [place] unspecified / Repository E55.9(ICD-10) 09/30/2017 Active Other fdc NA Active [facility] (current) drug [facility] [place] therapy / Repository Z79.899(ICD-10) 09/30/2017 Active Encounter for NA Active [facility] general adult [facility] [place] medical Repository examination without abnormal findings / Z00.00(ICD-10) 08/29/2017 Unknown R55 - Syncope and LatiaDemetrio carnesril Active [place] collapse / Community R55(ICD-10) Hospital Repository 02/16/2017 Active 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, [facility]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 / Repository H35.63(ICD-10) 01/31/2017 Unknown Z12.31 - Encounter Amina Jasmine Active [facility] for screening Community mammogram for Hospital malignant neoplasm Repository of breast / Z12.31(ICD-10) PROCEDURES PROCEDURES No Procedure Records FoundRESULTS RESULTS URGENT CARE VISIT Observed: 01/24/2018 Status: F Source: [place] RE[place] 10:12 AM [facility] REPOSITORY [facility] [address] [place] [address] [address] [place] [address] OFFICE VISIT Date of Service: 01/24/18 MR#: [id number] Acct: [id number] Name: GISSELMEKA Shabbir Rep #: [id number] : 1955 Provider: Frank ABREU Age/Sex: 62/F Location: [facility] [place] Status: Signed Intake Vital Signs01/24/18 Body Mass Index (BMI) 28.1 Intake Visit Reasons: CONGESTION Chief Complaint: Cough Seo Manager Required: No Accompanied by: Self Is patient in pain?: No Allergies No Known Allergies Allergy (Verified 01/24/18 09:58) Medications Ergocalciferol [Vitamin D] 2,000 unit PO DAILY 01/20/14 [History Confirmed 11/07/17] Multivitamins,Therapeutic [Multivitamin] 1 tab PO DAILY 01/20/14 [History Confirmed 11/07/17] Folic Acid 800 mg PO DAILY@0800 06/12/17 [History Confirmed 11/07/17] azithromycin 250 mg tablet See Rx Instructions PO .COMPLEX #6 tab 01/24/18 [Rx Confirmed 01/24/18] benzonatate 100 mg capsule 200 mg PO TID PRN #30 cap 01/24/18 [Rx Confirmed 01/24/18] methylprednisolone 4 mg tablets in a dose pack 4 mg PO PER PKG DIR 5 Days #21 tab 01/24/18 [Rx Confirmed 01/24/18] PFSH Medical History history of back fusion (Acute) history of neck fusion (Acute) Social History Smoking Status: Never smoker alcohol intake: never HPI HPI Chief Complaint: Cough Details: MEKA CHAUHAN, is a 62 F who presents to the office today for cough, congestion and wheeze for the past 8 days. Patient states that she was visiting her son who had a [place] tree which she is allergic to causing her to start coughing. She states the cough has worsened over this episode and she has started wheezing in the past several nights. She describes her cough as dry and nonproductive and denies hemoptysis, shortness of breath or difficulty breathing. She has had no fever, however has felt chilled particular in the evenings. No nausea, vomiting, diarrhea. No other associated symptoms or alleviating/aggravating factors. ROS Const Constitutional: No fever(s), chills, headache(s), night sweats or abnormal sleep pattern ENT ENT: Positive for nasal discharge, nasal congestion and post nasal drip; no headache(s), ear pain, ear discharge or sore throat Resp Respiratory: Positive for cough Cough: Yes non-productive, wheezing and pain with cough; no hemoptysis or shortness of breath Cardio Cardiology: No chest pain at rest or shortness of breath Neuro Neurology: No headache(s), behavioral changes or confusion Psych Psychiatric: No abnormal sleep pattern, No behavioral changes, No confusion Aller/Imm Allergy/Immunologic: Positive for wheezing Exam Const General: cooperative, well developed HENNV Head: normal to inspection, atraumatic Ears: hearing grossly normal bilaterally Nose: nasal discharge clear Face and sinus: normal facial exam Mouth: oral mucosae normal Throat: abnormal tonsil bilaterally Resp Effort AND Inspection: normal respiratory effort, no audible wheezes Auscultation: Bilateral: Clear to Auscultation Cardio Palpation: normal PMI Rate: regular rate Rhythm: regular rhythm Neuro General: alert, CN's II-XI intact bilaterally Psych Appearance: grossly normal Mental Status: mental status grossly normal Assessment AND Plan Problems 1. Acute bronchitis, unspecified organism J20.9 Status Acute Plan Azithromycin, benzonatate and Medrol Dosepak as prescribed today. Encouraged to get plenty of rest, drink lots of clear liquids, and use Tylenol or Ibuprofen (unless contraindicated) for fever and comfort. Patient also educated on other symptomatic management techniques. To be seen in 7-10 days if no improvement; sooner if worsening of symptoms. Patient advised of potential red flags and when appropriate to report to the ED. Patient verbalized understanding of all the above. Medications New: azithromycin take 500 mg today (day 1), then 250 mg for 4 days (days 2-5) PO 6 tabs 0J20.9 RF Coding Level of Care Code Off vis,est,level 3 Diagnoses Acute bronchitis, unspecified organism J20.9 Bronchitis organism: unspecified organism 01/24/18 1012 <Electronically signed by Frank ABREU> Date Frank ABREU Cosigner Signature: Date (if applicable) CC: PAP I-G W/RFX HRHPV Collected: 01/09/2018 Status: F Source: [place] 10:[place] [facility] [place] Order Comment: CYTOLOGY INFORMATION: - CLINICAL INFORMATION: - DATE LMP/MENOPAUSE: MENOPAUSE MENOPAUSE - COLLECTION VIAL: Thin Prep 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 of containers..01 ThinPrep Vial TYPE CODE TESTS RESULT OUT OF RANGE REFERENCE UNITS LAB L7400.0800 . Normal DIAGN Comment Result Comment: NEGATIVE FOR INTRAEPITHELIAL LESION AND MALIGNANCY. CELLULAR CHANGES ASSOCIATED WITH ATROPHY ARE PRESENT. LAB L7400.0900 . Normal ADEQ Comment Result Comment: Satisfactory for evaluation. Endocervical and/or squamous metaplastic cells (endocervical component) are present. LAB L7400.1400 . Normal PERFORM Comment Result Comment: Loreta Mcgraw, Pelt Shearer (ASCP) LAB L7400.6577 . Normal TEST METHOD Comment Result Comment: This liquid based ThinPrep(R) pap test was screened with the use of an image guided system. LAB L7400.2600 . Normal . COMM LAB L7400.2700 . Normal PAPSMR Comment Result Comment: The Pap smear is a screening test designed to aid in the detection of premalignant and malignant conditions of the uterine cervix. It is not a diagnostic procedure and should not be used as the sole means of detecting cervical cancer. Both false-positive and false-negative reports do occur. LAB L7400.2800 . Normal HPV RFLX Comment Result Comment: The HPV DNA reflex criteria were not met with this specimen result therefore, no HPV testing was performed. Performed at: - [facility] [address] [id number] Career Development Associate: Brittany Morgan MD, Phone: [phone] Performed By: #### L7400.0350 #### [facility] (refer to report for specific site) refer to report for address and phone number URGENT CARE VISIT Observed: 11/07/2017 Status: F Source: [place] REPORT 11:[address] [facility] [address] [place] [address] OFFICE VISIT Date of Service: 11/07/17 MR#: [id number] Acct: [id number] Name: MEKA CHAUHAN Rep #: [id number] : 1955 Provider: Mg ABREU Age/Sex: 62/F Location: [facility] – [place] Status: Signed Intake Vital Signs11/07/17 Height 5 ft 4 in 11/07/17 Weight: 164 lb 11/07/17 Body Mass Index (BMI) 28.1 11/07/17 Blood Pressure 100/68 Intake Visit Reasons: Ear complaints Chief Complaint: earache Seo Manager Required: No Accompanied by: self Is patient in pain?: No Allergies No Known Allergies Allergy (Verified 11/07/17 10:15) Medications Ergocalciferol [Vitamin D] 2,000 unit PO DAILY 01/20/14 [History Confirmed 11/07/17] Multivitamins,Therapeutic [Multivitamin] 1 tab PO DAILY 01/20/14 [History Confirmed 11/07/17] Folic Acid 800 mg PO DAILY@0800 06/12/17 [History Confirmed 11/07/17] azithromycin 250 mg tablet 250 mg PO QDAY #6 tab 11/07/17 [Rx Confirmed 11/07/17] [facility] Medical History history of back fusion (Acute) history of neck fusion (Acute) Social History Smoking Status: Never smoker alcohol intake: never HPI HPI Chief Complaint: earache Details: MEKA CHAUHAN, is a 62 F who presents to the office today for initial evaluation of earache times approximately 1 week to the left ear. Patient has no complaints of changes with hearing; no complaints of headache/lightheadedness/ dizziness, nausea/vomiting, fever, chills, sweats. She is a non-smoker. She notes no other associated symptoms and no other alleviating or aggravating factors. ROS Const Constitutional: No other (ROS negative x10 other than as noted above) Exam Const General: cooperative, healthy appearing, no acute distress, comfortable Nutritional Appearance: average body habitus Orientation: alert, awake, oriented x3 HENMT Head: normal to inspection Ears: hearing grossly normal bilaterally, external ears normal, TM's normal bilaterally, EAC's normal, no periauricular adenopathy, external ear abnormal (Trace erythema/swelling to abrasion site medial to left tragus) Nose: external nose normal, nares normal, septum normal, no nasal discharge Face and sinus: normal facial exam, sinuses nontender, face symmetric Mouth: tongue normal, lip normal, oropharynx normal, oral mucosae normal Teeth and gingiva: dentition normal, gingiva normal Throat: uvula midline, tonsils normal, posterior oropharynx normal, no postnasal drainage Eyes General: appearance normal, both eyes and all related structures Neck Neck: normal visual inspection, full ROM, no lymphadenopathy, no meningeal signs, supple Neck mass: No Thyroid: thyroid normal Lymphatic: no lymphadenopathy noted Chest Chest palpation AND inspection: normal inspection of the chest Resp Effort AND Inspection: normal respiratory effort, able to speak in complete sentences, symmetric chest movement Auscultation: Bilateral: Clear to Auscultation Cardio Palpation: normal PMI Rate: regular rate Rhythm: regular rhythm Heart Sounds: S1 normal, S2 normal, no gallops, no murmurs, no rubs Pulses: radial pulses present GI Inspection: normal to inspection Palpation: soft, no hepatosplenomegaly Skin General: no rashes or lesions noted, erythema (See ear exam above) Neuro General: alert, awake, oriented x3, gait normal Cognition: normal cognition Speech: speech normal Gait: normal gait Motor: muscle tone normal throughout Sensory Exam: no sensory deficits noted Psych Appearance: grossly normal Mental Status: mental status grossly normal Mood: congruent mood Affect: normal affect Speech and Movement: speech and movement normal Attitude: cooperative Thought Process: normal Thought Content: normal Judgment: judgment good Assessment AND Plan 1. Ear problem H93.90 2. Cellulitis of left external ear H60.12 Plan Azithromycin as prescribed today. Skin care as instructed today. Follow-up with PCP in 3-5 days should symptoms not improve, sooner should symptoms worsen or any other concerns develop. Patient states acknowledging understanding all the above. This note was generated with Medcurrentation software. It may contain incorrect words, spelling, and punctuation that were not noted in checking the note before signing. Plan Detail Other Medications New: azithromycin 2 tablets today, then 1 tablet daily on days 2 250 mg PO QDAY 6 tabs 0RF through 5 Coding Level of Care Code Off vis,est,level 3 Diagnoses Ear problem H93.90 Cellulitis of left external ear H60.12 11/07/17 1148 <Electronically signed by Mg ABREU> Date Mg ABREU Cosigner Signature: Date (if applicable) CC: CBC AND DIFFERENTIAL Collected: 11/05/2017 Status: F Source: [place] 3:12 PM [facility] REPOSITORY TYPE CODE TESTS RESULT OUT OF REFERENCE UNITS RANGE LAB WBC 3.70-11.00 k/uL WBC 5.88 LAB RBC 3.90-5.20 m/uL RBC 5.05 LAB HGB 11.5-15.5 g/dL High Hemoglobin 15.6 LAB HCT 36.0-46.0 % Hematocrit 44.6 LAB MCV 80.0-100.0 fL MCV 88.3 LAB MCH 26.0-34.0 pG MCH 30.9 LAB MCHC 30.5-36.0 g/dL MCHC 35.0 LAB RDWCV 11.5-15.0 % RDW-CV 11.5 LAB PLTCT 150-400 k/uL Platelet Count 277 LAB MPV 9.0-12.7 fL MPV 9.7 LAB ANEUT % Neut% 68.2 LAB AANEUT 1.45-7.50 k/uL Abs Neut 4.01 LAB ALYMP % Lymph% 24.0 LAB AALYMP 1.00-4.00 k/uL Abs Lymph 1.41 LAB AMONO % Edmonson% 6.1 LAB AAMONO <0.87 k/uL Abs Edmonson 0.36 LAB AEOS % Eosin% 1.4 LAB AAEOS <0.46 k/uL Abs Eosin 0.08 LAB ABASO % Baso% 0.3 LAB AABASO <0.11 k/uL Abs Baso <0.03 LAB AUNRBC 0 /100 WBC NRBCs 0.0 LAB ABNRBC <0.01 k/uL Absolute nRBC <0.01 LAB DTYP DTYPE Auto Diff Performed By: #### CBCDIF #### [facility] [address] [place] [address] HISTORY AND PHYSICAL Observed: 10/25/2017 Status: F Source: [place] 7[place] [facility] [place] [facility] Medical Records Department [address] [place] [address] History and Physical 10/10/17 0906 MR#: [id number] Acct: [id number] Name: MEKA CHAUHAN Rep #: [id number] : 1955 62 From: Sean Schumacher MD PCP: Tani Carlson MD Status: [facility] Y Location: [place] Problem List (1) Screen for colon cancer Status: Acute History of Present Illness Date of Admission: 10/10/17 The patient is a 62 year old F who presents for screening colonoscopy. 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 Smoking Status: Never smoker - *Family History Maternal History Items: Cancer Paternal History Items: No pertinent history Review of Systems Constitutional: Denies: Chills, Fever, Weight Change Cardiovascular: Denies: Chest Pain, Chest Pressure, Chest Tightness, Palpitations Respiratory: Denies: Cough, Hemoptysis, Shortness of breath at rest, Shortness of breath upon exertion, Wheezing Gastrointestinal: Denies: Abdominal Pain, Constipation, Diarrhea, Hematemesis, Nausea, Melena, Vomiting VTE Information - Inpt Only VTE Present on Admission: No VTE Mechan Device Prophylaxis: None VTE Pharm Prophylaxis ordered?: No Reason prophylaxis not ordered:: Treatment Not Indicated Patient Problems: Active and Suspected Problems Screen for colon cancer (Acute) - Physical Exam General: Alert, Oriented x3 Lungs: Clear to auscultation Cardiovascular: Regular rate, Regular Rhythm, No murmurs Abdomen: Bowel Sounds Present, Soft, Non Tender, Non-Distended Vital Signs Temp Pulse Resp BP Pulse Ox 97.6 F L 56 L 16 109/67 100 10/10/17 08:45 10/10/17 08:45 10/10/17 08:45 10/10/17 08:45 10/10/17 08:45 Oxygen Delivery Method Room Air Weight: 150 lb 12.739 oz Body Mass Index (BMI) 26.6 Assessment/Plan All Active Problems Syncope (Acute) Screen for colon cancer (Acute) Postmenopausal bleeding (Acute) Is to perform a colonoscopy on the patient. Risk benefits have been reviewed with the patient patient agrees to proceed. 10/25/171913 <Electronically signed by Sean Schumacher MD> Date Sean Schumacher MD Cosigner Signature: Date (if applicable) CC: Tani Carlson MD; Sean Schumacher MD Signed OPERATIVE REPORT Observed: 10/10/2017 Status: F Source: [place] 9:31 AM [facility] Medical Records Department [address] [place] [address] Operative Report 10/10/17928 MR#: [id number] Acct: [id number] Name: MEKA CHAUHAN Rep #: [id number] : 1955 62 From: Sean Schumacher MD PCP: Tani Carlson MD Status: [facility] Y Location: [place] [address] Problem List (1) Screen for colon cancer Status: Acute Report of Operation Date of Procedure: 10/10/17 Pre-Operative Diagnosis: Screening colonoscopy Post-Operative Diagnosis: Same Surgery/Procedure Performed:: Colonoscopy Type of Anesthesia:: MAC Anesthesiologist: Rylan Mercado Description of Procedure: Patient was brought into the endoscopy suite placed in the left lateral decubitus position. She was given graded anesthesia. Scope was inserted in the rectum. It was directed through the rectum, sigmoid colon, descending colon, transverse colon, ascending colon, to the cecum without difficulty operative findings: 1. Cecum: Normal appearance no mass lesions normal ileocecal valve. 2. Ascending colon: Normal appearance no mass lesions 3. Transverse colon: Normal appearance no mass lesions 4. Descending colon: Normal appearance no mass lesions. 5. Sigmoid colon: Normal appearance no mass lesions of few diverticuli identified. Rectum: Normal appearance no mass lesions internal hemorrhoids were identified no signs of bleeding. Scope was withdrawn digital rectal exam was performed showing a smooth anus with no nodules. Patient will need another colonoscopy in 10 years. - Admit VTE Documentation VTE Present on Admission: No VTE Mechan Device Prophylaxis: None VTE Pharm Prophylaxis ordered?: No Reason prophylaxis not ordered:: Treatment Not Indicated 10/10/17930 <Electronically signed by Sean Schumacher MD> Date Sean Schumacher MD CC: Tani Carlson MD; Sean Schumacher MD Signed CBC AND DIFFERENTIAL Collected: 09/30/2017 Status: F Source: [place] 7:37 AM [facility] REPOSITORY TYPE CODE TESTS RESULT OUT OF REFERENCE UNITS RANGE LAB WBC 3.70-11.00 k/uL Low WBC 3.60 LAB RBC 3.90-5.20 m/uL RBC High 5.37 LAB HGB 11.5-15.5 g/dL High Hemoglobin 16.3 LAB HCT 36.0-46.0 % High Hematocrit 49.4 LAB MCV 80.0-100.0 fL MCV 92.0 LAB MCH 26.0-34.0 pG MCH 30.4 LAB MCHC 30.5-36.0 g/dL MCHC 33.0 LAB RDWCV 11.5-15.0 % RDW-CV 12.0 LAB PLTCT 150-400 k/uL Platelet Count 198 LAB MPV 9.0-12.7 fL MPV 9.4 LAB ANEUT % Neut% 52.2 LAB AANEUT 1.45-7.50 k/uL Abs Neut 1.87 LAB ALYMP % Lymph% 36.9 LAB AALYMP 1.00-4.00 k/uL Abs Lymph 1.33 LAB AMONO % Edmonson% 7.2 LAB AAMONO <0.87 k/uL Abs Edmonson 0.26 LAB AEOS % Eosin% 3.1 LAB AAEOS <0.46 k/uL Abs Eosin 0.11 LAB ABASO % Baso% 0.6 LAB AABASO <0.11 k/uL Abs Baso <0.03 LAB AUNRBC 0 /100 WBC NRBCs 0.0 LAB ABNRBC <0.01 k/uL Absolute nRBC <0.01 LAB DTYP DTYPE Auto Diff Performed By: #### LIPB, CMP, CBCDIF, VITD #### [facility] [address] [place] [id number] COMP METABOLIC PANEL Collected: 09/30/2017 Status: F Source: [place] 7:37 AM [facility] REPOSITORY TYPE CODE TESTS RESULT OUT OF REFERENCE UNITS RANGE LAB TP 6.3-8.0 g/dL Protein, Total 7.3 LAB ALB 3.9-4.9 g/dL Albumin 4.6 LAB CA 8.5-10.2 mg/dL Calcium, Total 9.6 LAB TBIL 0.2-1.3 mg/dL Bilirubin, Total 0.7 LAB ALKP 32-117 U/L Alkaline Phosphatase 60 LAB AST 13-35 U/L AST 26 LAB GLU 74-99 mg/dL Glucose 85 Result Comment: The [place] [employer] (ADA) provides guidance for cutoff values for fasting glucose and random glucose. The ADA defines fasting as no caloric intake for at least 8 hours. Fas ting plasma glucose results between 100 to 125 mg/dL indicate increased risk for diabetes (prediabetes). Fasting plasma glucose results greater than or equal to 126 mg/dL meet the criteria for diagnosis of diabetes. In the absence of unequivocal hyperglycemia, results should be confirmed by repeat testing. In a patient with classic symptoms of hyperglycemia or hyperglycemic crisis, random plasma glucose results greater than or equal to 200 mg/dL meet the criteria for diagnosis of diabetes. Reference: Standards of Medical Care in Diabetes 2016, [place] [employer] Association. Diabetes Care. 2016.39(Suppl 1). LAB BUN 7-21 mg/dL BUN 9 LAB CRET 0.58-0.96 mg/dL Creatinine 0.69 LAB NA 136-144 mmol/L Sodium 136 LAB K 3.7-5.1 mmol/L Potassium 4.9 LAB CL 97-105 mmol/L Chloride 97 LAB CO2 22-30 mmol/L CO2 26 LAB AGAP 9-18 mmol/L Anion Gap 13 LAB ALT 7-38 U/L ALT 25 LAB GFRAA eGFR- Amer. >60 LAB GFRNAA . eGFR-All Other Races >60 Result Comment: eGFR (Estimated GFR) Units of measure: mL/min/1.73 meters squared eGFR is derived from the reexpressed MDRD Study equation using the following parameters: serum creatinine, age, gender and race. The creatinine assay has been calibrated to be traceable to IDMS. An eGFR <60 mL/min/1.73m2 for >3 months is consistent with chronic kidney disease. Refer to KDOQI guidelines for clinical interpretation. In patients with unstable renal function, e.g. those with acute kidney injury, the eGFR may not accurately reflect actual GFR. Performed By: #### LIPB, CMP, CBCDIF, VITD #### [facility] [address] [place] [id number] LIPID PANEL, BASIC Collected: 09/30/2017 Status: F Source: [place] 7:37 AM [facility] REPOSITORY TYPE CODE TESTS RESULT OUT OF REFERENCE UNITS RANGE LAB CHOL <200 mg/dL Cholesterol High 200 Result Comment: <200 mg/dL, Desirable 200-239 mg/dL, Borderline high >239 mg/dL, High LAB TRIGLY <150 mg/dL Triglyceride 115 Result Comment: <150 mg/dL, Normal 150-199 mg/dL, Borderline high 200-499 mg/dL, High >499 mg/dL, Very high LAB HDL >39 mg/dL HDL-Cholesterol 54 Result Comment: 40-59 mg/dL, Acceptable >59 mg/dL, High: Negative risk factor for coronary heart disease <40 mg/dL, Low: Positive risk factor for coronary heart disease LAB LDL <100 mg/dL LDL-Cholesterol High 123 Result Comment: <100 mg/dL, Optimal 100-129 mg/dL, Near optimal/above optimal 130-159 mg/dL, Borderline high 160-189 mg/dL, High >189 mg/dL, Very high Secondary prevention optimal LDL Cholesterol levels are recommended to be < 70 mg/dL LAB NONHDL <130 mg/dL Non HDL High Cholesterol 146 Result Comment: <130 mg/dL, Optimal 130-159 mg/dL, Near optimal/above optimal 160-189 mg/dL, Borderline high 190-219 mg/dL, High >219 mg/dL, Very high Secondary prevention optimal non HDL Cholesterol levels are recommended to be < 100 mg/dL LAB FT hrs Fasting Time 12 LAB VLDL <30 mg/dL VLDL Cholesterol 23 LAB TCHDL <5.10 TC:HDL Ratio 3.70 LAB LDLHDL <2.54 LDL:HDL Ratio 2.28 Result Comment: Reference: 1. National Cholesterol Education Program ATP III Guideline At-A-Glance Quick Desk Reference: National Heart, Lung, and Blood Butler. National Institutes of Health. 2001: NIH Publication No. 01-3305. 2. An International Atherosclerosis Society position paper: global recommendations for the management of dyslipidemia: executive summary, Atherosclerosis. 2014: 232(2):410-413. Performed By: #### LIPB, CMP, CBCDIF, VITD #### [facility] [address] [place] [address] VITAMIN D 25 HYDROXY Collected: 09/30/2017 Status: F Source: [place] 7:37 AM [facility] REPOSITORY TYPE CODE TESTS RESULT OUT OF REFERENCE UNITS RANGE LAB VITD 31.0-80.0 ng/mL Vitamin D 25 58.7 Hydroxy Result Comment: Classification of 25 [place] Vitamin D status: Insufficiency/Moderate Deficiency: < or = 30 ng/mL Sufficiency/Optimal Levels: 31 to 80 ng/mL Toxicity: > 100 ng/mL Test performed by chemiluminescent immunoassay. Performed By: #### LIPB, CMP, CBCDIF, VITD #### [facility] [address] [place], [place] [address] PROGRESS Observed: 09/26/2017 Status: COMPLETED Source: [place] 8:43 AM [facility] REPOSITORY HNO ID: [id number] Author: Maria Eugenia Tavarez) Robyn Service: (none) Author Type: Physician Type: Progress Notes Filed: 09/26/2017 9:15 AM Note Text: Chief Complaint Patient presents with: Physical HPI Meka Chauhan is a 62 year old female who presents here today for Medicare Annual Visit. Patient without complaints today. Notes that she was in the ED back in June after bilateral blepharoplasty and had vasovagal syncope after using restroom. Holter monitor normal after episode and echo normal. Has not had recurrent symptoms. Exercising every other day for about 45 minutes working on cardio and weight lifting. Healthy diet. Trying to lose weight. Seeing Dr. Russ at [facility] for annual well woman exam. Due for 1 year follow up. Last year obtained pap which was normal. Records not available today. Due for screening colonoscopy, last in 2007 which was normal. Up to date on immunizations. Past medical history, appointments, medications, allergies reviewed. Previous Medical History PAST MEDICAL HISTORY Diagnosis Date - Bunion, left - DDD (degenerative disc disease), cervical - DDD (degenerative disc disease), lumbar - Hyperlipidemia mild - Lumbar radiculopathy - Overweight - Perforated diverticulum - Pneumoperitoneum - Retinal hemorrhage peripheral. seeing Dr. Shanks - Vitamin D deficiency Previous Surgical History PAST SURGICAL HISTORY Procedure Laterality Date - BACK SURGERY HX 09/2009 laminectomy L4 and L5 - BLEPHAROPLASTY U EYELID Bilateral 06/12/2017 - COLONOSCOP W/ OR W/O [facility] SPEC 08/2000 flex sigmoid - COLONOSCOP W/ OR W/O [facility] SPEC 03/24/2007 - LIGATE FALLOPIAN TUBE Tubal ligation - PAST SURGICAL HISTORY OF 01/22/14 endocervical polypectomy, D AND C , hysteroscopy - PAST SURGICAL HISTORY OF 04/17/14 diagnostic laparoscopy; duodenal diverticulectomy; duodenostomy tube - PAST SURGICAL HISTORY OF 2011 C2, C3, C4 - REMOVAL ADENOIDS,PRIMARY,<12 Y/O Adenoidectomy - REMOVAL GALLBLADDER 2001 Cholecystectomy - REMOVAL OF TONSILS,<12 Y/O Tonsillectomy Family History FAMILY HISTORY Problem Relation Age of Onset - Breast Cancer Mother also throat and lung cancer - Cancer Father PROSTRATE - other (PARKINSONS) Father - Diabetes Maternal Grandmother - Hypertension Sister - Breast Cancer Sister - Breast Cancer Paternal Aunt Patient Allergies ALLERGIES No Known Allergies Current Medications Current Outpatient Prescriptions on File Prior to Visit: cholecalciferol (VITAMIN D-3) 2,000 unit tablet Take 2,000 Units by mouth once daily. THERAPEUTIC MULTIVITAMIN TAB Take one(1) tablet daily. FOLIC ACID 1 MG TAB take two a day No current facility-administered medications on file prior to visit. Social History Social History Marital status: Spouse name: Lloyd Escoto Years of education: 18+ Number of children: 1 Occupational History Occupation Employer Comment [employer]* Social History Main Topics Smoking status: Never Smoker Smokeless tobacco: Never Used Alcohol use: Yes 1.0 oz/week Comment: rare Drug use: No Sexual activity: Yes Partners with: Male control/protection: Tubal Ligation Review of Symptoms REVIEW OF SYSTEMS GENERAL: No weight loss, malaise or fevers HEENT: Negative for frequent or significant headaches, No changes in hearing or vision, no nose bleeds or other nasal problems NECK: Negative for lumps, goiter, pain and significant neck swelling RESPIRATORY: Negative for cough, hemoptysis, wheezing, COPD, dyspnea or shortness of breath CARDIOVASCULAR: Negative for chest pain, leg swelling, hypertension, CHF or palpitations GI: No nausea, vomiting, or diarrhea : No history of dysuria, frequency or incontinence, No difficulty urinating or hematuria 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 General Appearance: Well appearing, alert, in no acute distress, well-hydrated, well nourished.. Skin: Skin color, texture, turgor normal, no suspicious rashes or lesions. Head: Normocephalic, no masses, lesions, tenderness or abnormalities. Eyes: Anicteric sclera. Pupils are equally round and reactive to light. Extraocular movements are intact. . Ears: External ears normal, canals clear. Nose/Sinuses: Nares normal, septum midline, mucosa normal, no drainage or sinus tenderness. Oropharynx: Lips, mucosa, and tongue normal, teeth and gums normal, oropharynx normal. Neck: Supple, no adenopathy; thyroid symmetric, normal size, no bruits. Lungs: Lungs clear to auscultation. No wheezing, rhonchi, rales. Heart: RRR without murmur, gallop, or rubs. No ectopy. Abdomen: Normal abdominal exam, Abdomen soft, non-tender. Bowel sounds normal. No masses, organomegaly. Extremities: No deformities, edema, skin discoloration, clubbing or cyanosis. Good capillary refill. . Musculoskeletal: No joint swelling, deformity, or tenderness. Health Maintenance List PAP EVERY 5 YEARS due on 06/02/2014 HPV EVERY 5 YEARS due on 06/02/2014 INFLUENZA(1) due on 10/12/2017 MAMMOGRAM due on 01/31/2018 DIABETES SCREEN due on 02/17/2020 LIPID SCREEN due on 09/14/2021 DTAP,TDAP,TD(4 - Td) due on 03/28/2025 HEPATITIS C SCREENING Completed Data reviewed Component Latest Ref Rng AND Units 09/27/2016 02/16/2017 WBC 3.70 - 11.00 k/uL 3.93 RBC 3.90 - 5.20 m/uL 5.23 (H) Hemoglobin 11.5 - 15.5 g/dL 15.5 Hematocrit 36.0 - 46.0 % 48.2 (H) MCV 80.0 - 100.0 fL 92.2 MCH 26.0 - 34.0 pG 29.6 MCHC 30.5 - 36.0 g/dL 32.2 RDW-CV 11.5 - 15.0 % 11.8 Platelet Count 150 - 400 k/uL 187 MPV 9.0 - 12.7 fL 9.3 Neut% % 52.1 Abs Neut (ANC) 1.45 - 7.50 k/uL 2.05 Lymph% % 34.1 Abs Lymph 1.00 - 4.00 k/uL 1.34 Edmonson% % 8.7 Abs Edmonson 0.00 - 0.86 k/uL 0.34 Eosin% % 4.6 Abs Eosin 0.00 - 0.45 k/uL 0.18 Baso% % 0.5 Abs Baso 0.00 - 0.10 k/uL 0.02 Nucleated Reds 0 /100 WBC 0.0 Absolute nRBC k/uL 0.00 Diff Type Auto Diff Hemoglobin A1C 4.3 - 5.6 % 5.3 Estimated Average Glucose mg/dL 105 Vitamin D 25 Hydroxy 31.0 - 80.0 ng/mL 41.6 Hep C Antibody IA Negative Negative ASSESSMENT/PLAN: 1. Annual physical exam - ICD9: V70.0, ICD10: Z00.00 (primary diagnosis) - Colon cancer screening reviewed and colonoscopy recommended. Patient agrees and order placed. - Recommended regular aerobic exercise. - Check CBC with diff, CMP and fasting lipid panel - Follow up for annual exam in one year. - CBC + DIFF - COMP METABOLIC PANEL - LIPID PANEL BASIC 2. Mixed hyperlipidemia - ICD9: 272.2, ICD10: E78.2 - to be determined upon return of lab results - Encouraged following a low fat, low cholesterol diet. - Discussed the benefits of regular aerobic exercise and weight loss. 3. Vitamin D deficiency - ICD9: 268.9, ICD10: E55.9 - VITAMIN D 25 HYDROXY 4. Elevated hematocrit - ICD9: 282.7, ICD10: R71.8 Repeat CBC. 5. Screening for colon cancer - ICD9: V76.51, ICD10: Z12.11 - CONSULT TO GENERAL SURGERY Maria Eugenia Carlson MD CNOV Observed: 09/26/2017 Status: COMPLETED Source: [place] 8:20 AM [facility] REPOSITORY Office Visit (FAMPWS) MEKA CHAUHAN ([id number]) 1955 F Date Time Provider Department 09/26/17 8:20 AM MARIA EUGENIA CARLSON) FAMPWS During your visit today, we recorded the following information about you: Temperature Pulse Respiration Blood pressure 97.5 degrees 64/minute 10/minute 102/64 Weight Height 70.8 kg 1.605 m Maria Eugenia Carlson MD 09/26/2017 9:15 AM Signed Chief Complaint Patient presents with: Physical HPI Meka Chauhan is a 62 year old female who presents here today for Medicare Annual Visit. Patient without complaints today. Notes that she was in the ED back in June after bilateral blepharoplasty and had vasovagal syncope after using restroom. Holter monitor normal after episode and echo normal. Has not had recurrent symptoms. Exercising every other day for about 45 minutes working on cardio and weight lifting. Healthy diet. Trying to lose weight. Seeing Dr. Russ at [facility] for annual well woman exam. Due for 1 year follow up. Last year obtained pap which was normal. Records not available today. Due for screening colonoscopy, last in 2007 which was normal. Up to date on immunizations. Past medical history, appointments, medications, allergies reviewed. Previous Medical History PAST MEDICAL HISTORY Diagnosis Date - Bunion, left - DDD (degenerative disc disease), cervical - DDD (degenerative disc disease), lumbar - Hyperlipidemia mild - Lumbar radiculopathy - Overweight - Perforated diverticulum - Pneumoperitoneum - Retinal hemorrhage peripheral. seeing Dr. Shanks - Vitamin D deficiency Previous Surgical History PAST SURGICAL HISTORY Procedure Laterality Date - BACK SURGERY HX 09/2009 laminectomy L4 and L5 - BLEPHAROPLASTY U EYELID Bilateral 06/12/2017 - COLONOSCOP W/ OR W/O [facility] SPEC 08/2000 flex sigmoid - COLONOSCOP W/ OR W/O [facility] SPEC 03/24/2007 - LIGATE FALLOPIAN TUBE Tubal ligation - PAST SURGICAL HISTORY OF 01/22/14 endocervical polypectomy, D AND C , hysteroscopy - PAST SURGICAL HISTORY OF 04/17/14 diagnostic laparoscopy; duodenal diverticulectomy; duodenostomy tube - PAST SURGICAL HISTORY OF 2011 C2, C3, C4 - REMOVAL ADENOIDS,PRIMARY,<12 Y/O Adenoidectomy - REMOVAL GALLBLADDER 2001 Cholecystectomy - REMOVAL OF TONSILS,<12 Y/O Tonsillectomy Family History FAMILY HISTORY Problem Relation Age of Onset - Breast Cancer Mother also throat and lung cancer - Cancer Father PROSTRATE - other (PARKINSONS) Father - Diabetes Maternal Grandmother - Hypertension Sister - Breast Cancer Sister - Breast Cancer Paternal Aunt Patient Allergies ALLERGIES No Known Allergies Current Medications Current Outpatient Prescriptions on File Prior to Visit: cholecalciferol (VITAMIN D-3) 2,000 unit tablet Take 2,000 Units by mouth once daily. THERAPEUTIC MULTIVITAMIN TAB Take one(1) tablet daily. FOLIC ACID 1 MG TAB take two a day No current facility-administered medications on file prior to visit. Social History Social History Marital status: Spouse name: Lloyd Escoto Years of education: 18+ Number of children: 1 Occupational History Occupation Employer Comment [employer]* Social History Main Topics Smoking status: Never Smoker Smokeless tobacco: Never Used Alcohol use: Yes 1.0 oz/week Comment: rare Drug use: No Sexual activity: Yes Partners with: Male control/protection: Tubal Ligation Review of Symptoms REVIEW OF SYSTEMS GENERAL: No weight loss, malaise or fevers HEENT: Negative for frequent or significant headaches, No changes in hearing or vision, no nose bleeds or other nasal problems NECK: Negative for lumps, goiter, pain and significant neck swelling RESPIRATORY: Negative for cough, hemoptysis, wheezing, COPD, dyspnea or shortness of breath CARDIOVASCULAR: Negative for chest pain, leg swelling, hypertension, CHF or palpitations GI: No nausea, vomiting, or diarrhea : No history of dysuria, frequency or incontinence, No difficulty urinating or hematuria 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 General Appearance: Well appearing, alert, in no acute distress, well-hydrated, well nourished.. Skin: Skin color, texture, turgor normal, no suspicious rashes or lesions. Head: Normocephalic, no masses, lesions, tenderness or abnormalities. Eyes: Anicteric sclera. Pupils are equally round and reactive to light. Extraocular movements are intact. . Ears: External ears normal, canals clear. Nose/Sinuses: Nares normal, septum midline, mucosa normal, no drainage or sinus tenderness. Oropharynx: Lips, mucosa, and tongue normal, teeth and gums normal, oropharynx normal. Neck: Supple, no adenopathy; thyroid symmetric, normal size, no bruits. Lungs: Lungs clear to auscultation. No wheezing, rhonchi, rales. Heart: RRR without murmur, gallop, or rubs. No ectopy. Abdomen: Normal abdominal exam, Abdomen soft, non-tender. Bowel sounds normal. No masses, organomegaly. Extremities: No deformities, edema, skin discoloration, clubbing or cyanosis. Good capillary refill. . Musculoskeletal: No joint swelling, deformity, or tenderness. Health Maintenance List PAP EVERY 5 YEARS due on 06/02/2014 HPV EVERY 5 YEARS due on 06/02/2014 INFLUENZA(1) due on 10/12/2017 MAMMOGRAM due on 01/31/2018 DIABETES SCREEN due on 02/17/2020 LIPID SCREEN due on 09/14/2021 DTAP,TDAP,TD(4 - Td) due on 03/28/2025 HEPATITIS C SCREENING Completed Data reviewed Component Latest Ref Rng AND Units 09/27/2016 02/16/2017 WBC 3.70 - 11.00 k/uL 3.93 RBC 3.90 - 5.20 m/uL 5.23 (H) Hemoglobin 11.5 - 15.5 g/dL 15.5 Hematocrit 36.0 - 46.0 % 48.2 (H) MCV 80.0 - 100.0 fL 92.2 MCH 26.0 - 34.0 pG 29.6 MCHC 30.5 - 36.0 g/dL 32.2 RDW-CV 11.5 - 15.0 % 11.8 Platelet Count 150 - 400 k/uL 187 MPV 9.0 - 12.7 fL 9.3 Neut% % 52.1 Abs Neut (ANC) 1.45 - 7.50 k/uL 2.05 Lymph% % 34.1 Abs Lymph 1.00 - 4.00 k/uL 1.34 Edmonson% % 8.7 Abs Edmonson 0.00 - 0.86 k/uL 0.34 Eosin% % 4.6 Abs Eosin 0.00 - 0.45 k/uL 0.18 Baso% % 0.5 Abs Baso 0.00 - 0.10 k/uL 0.02 Nucleated Reds 0 /100 WBC 0.0 Absolute nRBC k/uL 0.00 Diff Type Auto Diff Hemoglobin A1C 4.3 - 5.6 % 5.3 Estimated Average Glucose mg/dL 105 Vitamin D 25 Hydroxy 31.0 - 80.0 ng/mL 41.6 Hep C Antibody IA Negative Negative ASSESSMENT/PLAN: 1. Annual physical exam - ICD9: V70.0, ICD10: Z00.00 (primary diagnosis) - Colon cancer screening reviewed and colonoscopy recommended. Patient agrees and order placed. - Recommended regular aerobic exercise. - Check CBC with diff, CMP and fasting lipid panel - Follow up for annual exam in one year. - CBC + DIFF - COMP METABOLIC PANEL - LIPID PANEL BASIC 2. Mixed hyperlipidemia - ICD9: 272.2, ICD10: E78.2 - to be determined upon return of lab results - Encouraged following a low fat, low cholesterol diet. - Discussed the benefits of regular aerobic exercise and weight loss. 3. Vitamin D deficiency - ICD9: 268.9, ICD10: E55.9 - VITAMIN D 25 HYDROXY 4. Elevated hematocrit - ICD9: 282.7, ICD10: R71.8 Repeat CBC. 5. Screening for colon cancer - ICD9: V76.51, ICD10: Z12.11 - CONSULT TO GENERAL SURGERY Maria Eugenia Carlson MD Referring Provider: SELF [[id number]] Allergies As of Date: 09/26/2017 (No Known Allergies) Date Reviewed: 09/26/2017 Reviewed by: Jhoana Galdamez Ma - Fully Assessed Reason for Visit: Physical [83] Primary Visit Diagnosis:Annual physical exam [Z00.00] Other Visit Diagnoses:Mixed hyperlipidemia [E78.2] Vitamin D deficiency [E55.9] Elevated hematocrit [R71.8] Screening for colon cancer [Z12.11] Order(s):CBC + DIFF [SQCBCDIF] Order #: [id number] FUTURE COMP METABOLIC PANEL [SQCMP] Order #: [id number] FUTURE LIPID PANEL BASIC [SQLIPB] Order #: [id number] FUTURE VITAMIN D 25 HYDROXY [SQVITD] Order #: [id number] FUTURE CONSULT TO GENERAL SURGERY [9011] Order #: [id number]: 1 Prescriptions as of 09/26/2017 Sig: CHOLECALCIFEROL (VITAMIN D3) * Take 2,000 Units by mouth onc* THERAPEUTIC MULTIVITAMIN TABL* Take one(1) tablet daily. FOLIC ACID 1 MG TABLET take two a day Problem List As Of Date 09/26/2017 Noted Resolved Radiculopathy, lumbar region [M54.16] INVALID FOR* More... Vitamin d deficiency [E55.9] INVALID FOR* More... Pneumoperitoneum [K66.8] INVALID FOR*09/26/2016 More... Perforated diverticulum of duodenum [K57.00] INVALID FOR*09/26/2016 Hyperlipidemia [E78.5] More... Disposition: Return in about 1 year (around 09/26/2018). Follow-up and Disposition History Recorded Encounter Status:Closed by MARIA EUGENIA CARLSON MD on 09/26/17 [id number] Observed: 09/10/2017 Status: COMPLETED Source: [place] 12:00 AM [facility] REPOSITORY Patient Outreach ([facility]) CARLOTA CHAUHANE ([id number]) 1955 F Date Time Provider Department 09/10/17 MARIA EUGENIA CARLSON) [facility] During your visit today, we recorded the following information about you: Allergies As of Date: 09/10/2017 (No Known Allergies) Date Reviewed: 02/16/2017 Reviewed by: Juan Antonio Moya Ma - Fully Assessed Visit Diagnosis:Medication management [Z79.899] Order(s):LIPID PANEL BASIC [SQLIPB] Order #: [id number] FUTURE Prescriptions as of 09/10/2017 Sig: CHOLECALCIFEROL (VITAMIN D3) * Take 2,000 Units by mouth onc* THERAPEUTIC MULTIVITAMIN TABL* Take one(1) tablet daily. FOLIC ACID 1 MG TABLET take two a day Problem List As Of Date 09/10/2017 Noted Resolved Radiculopathy, lumbar region [M54.16] INVALID FOR* More... Vitamin d deficiency [E55.9] INVALID FOR* More... Pneumoperitoneum [K66.8] INVALID FOR*09/26/2016 More... Perforated diverticulum of duodenum [K57.00] INVALID FOR*09/26/2016 Hyperlipidemia [E78.5] More... Encounter Status:Closed by EPIC, PRODUSER on 11/22/17 12 LEAD ELECTROCARDIOGRAM Observed: 06/14/2017 Status: F Source: [place] 3:[place] [facility] [place] [facility] Cardiovascular Services [address] [place] [address] 12 Lead EKG 06/12/17 1446 MR#: [id number] Acct: [id number] Name: MEKA CHAUHAN Rep #: [id number] : 1955 62 From: Cabrera Jeffery MD Attending Dr: Angelia Watts MD Status: DIS LEXII Ordering Dr: Vanda Jett MD Date: 06/12/17 Location: [facility] Sex: F C Admitted: 06/12/17 Test Reason : HYPOTENSION/FALL Blood Pressure : / mmHG Vent. Rate : 065 BPM Atrial Rate : 065 BPM P-R Int : 144 ms QRS Dur : 086 ms QT Int : 432 ms P-R-T Axes : 057 -11 021 degrees QTc Int : 449 ms Normal sinus rhythm Nonspecific ST and T wave abnormality Abnormal ECG Confirmed by CABRERA JEFFERY MD ([id number]), magazine editor REJI LAGUNAS ([id number]) on 06/14/2017 3:39:55 PM Referred By: RYAN HODGES/MALGORZATA Confirmed By:CABRERA JEFFERY MD 06/14/17 1539 Date Cabrera Jeffery MD CC: Vanda Jett MD; Angelia Watts MD; Tani Carlson MD Signed DISCHARGE SUMMARY Observed: 06/13/2017 Status: F Source: [place] 10:17 [place] [facility] [place] [facility] Medical Records Department [address] [place] [address] Discharge Summary 06/13/17 1604 MR#: [id number] Acct: [id number] Name: MEKA CHAUHAN Rep #: [id number] : 1955 62 From: Rl ABREU PCP: Tani Carlson MD Status: DIS LEXII Y Location: [place] [address] <Rl Bagley - Last Filed: 06/13/17 16:04> Discharge Date and Diagnosis Date of Admission: 06/12/17 Date of Discharge: 06/13/17 - Primary Discharge Diagnosis Active and Suspected Problems Syncope (Acute) - vasovagal s/p blepharoplasty (BL) Hospital Course and Treatment Imaging Results: Echo: Interpretation Summary The estimated ejection fraction is 65 %. Mildly dilated right ventricle. Trivial tricuspid valve insufficiency. Right ventricular systolic pressure estimated to be 36 mmHg. No regional wall motion abnormalities noted. There is no comparison study available. CT/Brain/Head without Contrast IMPRESSION: Normal unenhanced CT scan of the brain. Moderate mucosal thickening at the base of the right maxillary sinus. RAD/Chest 1 View (Portable) IMPRESSION: Normal x-ray examination of the chest. Operations: None Procedures: 2-D Echocardiogram Summary of Care Provided: Physical exam on day of discharge: Exceedingly progress note Hospital course: The patient is a 62 year old F who underwent a BL blepharoplasty the day of presentation, who presented to the hospital after passing out multiple times after her surgery at home. She would develop pain in her eyes and then slump over mostly unconscious briefly. She could not remember what she was saying or doing after slumping over. The last, most severe time was while she was having a BM. She had a hx of passing out when she experienced pain. She had a negative EKG, neg troponin, neg CT brain. She was admitted and maintained on tele. She had no further symptoms after admission. She had negative echocardiogram and negative cycled enzymes. Dr. Watts discussed her case with Dr. Jeffery who recommended she have a heart monitor as an outpatient for a month. We attempted to arrange this however they were unable to schedule this until 06.16.2017. She will come back on this day and have it placed as an outpatient. She was discharged home in stable condition. Please follow up with your sugeon as directed, your PCP in 1-2 weeks, and with Dr. Jeffery in 2-4 weeks. This patient was seen by Rl Bagley PA-C under the supervision of Doctor Mac.] Discharge Diet: No Restrictions Discharge Activity: Return to Normal Activity Home Medications: Medications to take at Discharge Ergocalciferol [Vitamin D] 2,000 unit PO DAILY 01/20/14 Multivitamins,Therapeutic [Multivitamin] 1 tab PO DAILY 01/20/14 Folic Acid 800 mg PO DAILY@0800 06/12/17 Tariq/Polymyx B Sulf/Dexameth [Jbbfub-Vbtcc-Bostbgj Eye Ointm] 1 applicatio TOPICAL TID 06/12/17 Primary Care Physician: Tani Carlson MD [Primary Care Provider] - Please follow up with your Primary Care Physician in: 1-2 weeks Please Follow Up With: Cabrera Jeffery MD When: 2-4 weeks Disposition: Home Minutes spent on discharge:: 35 Patient Condition:: Stable Medical Necessity - Tobacco Use Smoking Status: Never smoker Meaningful Use Info Meaningful Use Diagnoses (Choose all that apply): None applicable <Angelia Watts - Last Filed: 06/13/17 22:17> Hospital Course and Treatment Summary of Care Provided: The patient is a 62 year old F [] Code Visit Inpatient E AND M: [id number] Disch Hosp 06/13/17 1613 <Electronically signed by Rl ABREU> Date Rl ABREU 06/13/17 2277<Electronically signed by Angelia Watts MD> Cosigner Signature (if applicable): Date Angelia Watts MD CC: BRADY Bagley; Angelia Watts MD; Tani Carlson MD Signed DISCHARGE INSTRUCTION Observed: 06/13/2017 Status: F Source: [place] 4:04 PM [facility] Medical Records Department [address] [place] [address] Instructions for Home/Discharge Instructions 06/13/17 1601 MR#: [id number] Acct: [id number] Name: MEKA CHAUHAN Rep #: [id number] : 1955 62 From: Rl ABREU PCP: Tani Carlson MD Status: ADM LEXII - Discharge Diagnoses Current Active Problems: Current Active and Chronic Problems Syncope (Acute) You will use the following diet at home:: No restrictions Your food should be the consistency of: Regular Your liquids should be the consistency of: Regular/Thin Discharge Activity: Return to Normal Activity Additional Instructions: teletypesetter monitor will be placed as outpatient on saturday06/17/2017 Allergies/Adverse Reactions: Allergies No Known Allergies Allergy (Verified 06/12/17 14:44) Medications to take at Discharge Ergocalciferol [Vitamin D] 2,000 unit PO DAILY 01/20/14 Multivitamins,Therapeutic [Multivitamin] 1 tab PO DAILY 01/20/14 Folic Acid 800 mg PO DAILY@0800 06/12/17 Tariq/Polymyx B Sulf/Dexameth [Aqaweo-Jodsm-Citxyiu Eye Ointm] 1 applicatio TOPICAL TID 06/12/17 Primary Care Physician: Tani Carlson MD [Primary Care Provider] - Please follow up with your Primary Care Physician in: 1-2 weeks Please Follow Up With: Cabrera Jeffery MD When: 2-4 weeks Proposed Discharge Date: 06/13/17 06/13/17 1604 <Electronically signed by Rl ABREU> Date Rl ABREU CC: Tani Carlson MD ECHOCARDIOGRAM COMPLETE Observed: 06/13/2017 Status: F Source: [place] 12:17 PM [facility] [place] [facility] Cardiovascular Services [address] [place] [address] Echo Complete 06/13/17 1003 MR#: [id number] Acct: [id number] Name: MEKA CHAUHAN Rep #: [id number] : 1955 62 From: Sean Gentile MD Attending Dr: Angelia Watts MD Status: ADM LEXII Ordering Dr: Юлия Pacheco Date: 06/12/17 Location: [facility] Sex: F C Admitted: 06/12/17 Reason For Study: SYNCOPE Procedure This was a 2D Doppler, Color Flow transthoracic echocardiogram. Exam performed portable in patient room. Left Ventricle Normal size and thickness. The estimated ejection fraction is 65 %. Normal diastology for age. No regional wall motion abnormalities noted. Right Ventricle Mildly dilated right ventricle. Normal systolic function. Atria Normal left atrium. Normal right atrium. Normal atrial septum. Mitral Valve The mitral valve is structurally normal. No prolapse or stenosis seen. Tricuspid Valve Normal tricuspid valve. Trivial tricuspid valve insufficiency. Right ventricular systolic pressure estimated to be 36 mmHg. Aortic Valve Normal aortic valve. Trisinus/trileaflet aortic valve. Pulmonic Valve Normal pulmonic valve. Great Vessels Normal aortic root. Normal arch. Normal inferior vena cava. Inferior vena cava collapse with sniff. Pericardium/Pleural No pericardial effusion. MMode/2D Measurements AND Calculations LVIDd: 4.6 cm IVSd: 0.94 cm Ao root diam: 3.1 cm LVIDs: 3.0 cm LVPWd: 1.00 cm RVDd: 3.9 cm FS: 34.8 % LAV(MOD-bp): 47.2 ml LVAd ap4: 26.9 cm2 SV(MOD-sp4): 46.9 ml LAV(MOD-bp) Indexed: 26.8 ml/m2 EDV(MOD-sp4): 78.5 ml LAV(MOD-sp2): 45.5 ml EDV(sp4-el): 83.6 ml LAV(MOD-sp4): 46.7 ml LVAs ap4: 15.2 cm2 ESV(MOD-sp4): 31.6 ml ESV(sp4-el): 32.3 ml EF(MOD-sp4): 59.8 % EF(sp4-el): 61.3 % SV(sp4-el): 51.2 ml LA A4 area: 17.9 cm2 RA A4 area: 16.8 cm2 Doppler Measurements AND Calculations MV E max yunior: 79.3 cm/sec Lat Peak E' Yunior: 11.2 cm/sec Med Peak E' Yunior: 11.0 cm/sec MV A max yunior: 65.4 cm/sec E/E' lat: 7.1 E/E' med: 7.2 MV E/A: 1.2 Ao V2 max: 126.7 cm/sec LV V1 max: 119.3 cm/sec TR max yuniro: 262.2 cm/sec Ao max P.4 mmHg LV V1 max P.7 mmHg TR max P.6 mmHg Interpretation Summary The estimated ejection fraction is 65 %. Mildly dilated right ventricle. Trivial tricuspid valve insufficiency. Right ventricular systolic pressure estimated to be 36 mmHg. No regional wall motion abnormalities noted. There is no comparison study available. Ordering Physician: ROBBY Cisneros Referring Physician: MARIA EUGENIA CARLSON Performed By: Eleanor Cochran, NEMO, RVT 06/13/17 1216 Date Sean Gentile MD CC: ROBBY Pacheco; Angelia Watts MD; Tani Carlson MD Date Dictated: 06/13/17 1003 Date Transcribed: 06/13/17 1216 Senior Financial Reporting Analyst: Signed TROPONIN-I Collected: 06/13/2017 Status: F Source: [place] 5:08 AM [facility] Order Comment: 'TROP' Serial specimen #1, #2, #3, or #4: 4 TYPE CODE TESTS RESULT OUT OF RANGE REFERENCE UNITS LAB L501.4010 <0.06 ng/mL Normal < 0.02 TROPONIN-I Result Comment: TROPONIN-I EXPECTED VALUES <0.05 NEGATIVE 0.06 - 0.59 AT RISK OF [place] > OR = 0.60 SUGGEST [place] Performed By: #### L501.4010 #### [facility] [address] [place], [address] T4 FREE DIRECT Collected: 06/13/2017 Status: F Source: [place] 5:08 AM [facility] Order Comment: Comments: ok to add on TYPE CODE TESTS RESULT OUT OF RANGE REFERENCE UNITS LAB L506.0400 0.76-1.46 ng/dL Normal T4 FREE 0.97 DIRECT Performed By: #### L506.0400 #### [facility] [address] [place], [address] EMERGENCY DEPARTMENT Observed: 06/12/2017 Status: F Source: [place] SUMMARY 11:01 PM [facility] [place] [facility] Medical Records Department [address] [place] [address] Emergency Department Summary 06/12/17 1513 MR#: [id number] Acct: [id number] Name: MEKA CHAUHAN Rep #: [id number] : 1955 62 From: Vanda Jett MD PCP: Tani Carlson MD Status: ADM LEXII - ER Visit Summary Date of Service: 06/12/17 Chief Complaint: Syncope History of Present Illness: The patient is a 62 F presents after syncopal episode. Patient had eye surgery this morning per Dr. Salmeron. She had bilateral blepharoplasty. She was given Versed and fentanyl during the procedure. She was sent home and advised to take Tylenol. Upon returning home patient became very dizzy. When she attempted to sit up she had a syncopal episode. Her states it took multiple attempts to get her to the bathroom. She had a syncopal episode while in the bathroom and fell off the toilet. She hit her head and has a laceration to the left eyebrow. She denies chest pain or shortness of breath. She has had similar symptoms in the past when her blood pressure drops she will pass out. She is not on any antihypertensive medications. No anticoagulants. No other complaints. Physical Examination: Blood pressure 82/58, HR 62, RR 18. Patient is afebrile. Alert no acute distress. HEENT exam bilateral eyelid incision clean dry and intact. 2.5 cm laceration to the left eyebrow. Neck is nontender Lungs are clear and equal bilaterally. Heart is regular rate and rhythm. Abdomen is soft nontender nondistended. Extremities are unremarkable. Skin is warm and dry. No focal neurologic deficit. Remainder of exam is unremarkable. Emergency Department Course and Treatment: Patient is given IV fluids. EKG is sinus rate of 65 with no acute ischemic changes. CBC, chemistries unremarkable. Troponin is negative. Orthostatics negative. CT head shows no acute process. Laceration was repaired under sterile conditions. Irrigated with saline, anesthetized with lidocaine. 5, 6-0 simple sutures were placed. She tolerated this well. Blood pressure improved to 90s systolic. Will discuss with the hospitalist for observation. Disposition: Observation Impression: Syncope, left eyebrow laceration, laceration repair This note was generated with [employer] dictation software. It may contain incorrect words, spelling, and punctuation that were not noted in review of the chart prior to signing ED Disposition - Plan for ED Patient: Chief Complaint: Hypotension Referrals: Tani Carlson MD [Primary Care Provider] - What to do if you have Problems For any increased pain, shortness of breath, bleeding, nausea or vomiting, chest pain, or any unexpected problems, contact your Primary Care Provider. Call [facility] ([phone]) or report to the closest Emergency Room. Call 911 if necessary. 06/12/17 2301 <Electronically signed by Vanda Jett MD> Date Vanda Jett MD Cosigner Signature (If Indicated): Date CC: Tani Carlson MD HISTORY AND PHYSICAL Observed: 06/12/2017 Status: F Source: [place] EXAM 6:35 PM [facility] Medical Records Department [address] [place] [address] History and Physical 06/12/17 1642 MR#: [id number] Acct: [id number] Name: MEKA CHAUHAN Rep #: [id number] : 1955 62 From: Юлия Pacheco PASTE WORKERAudi PCP: Tani Carlson MD Status: ADM LEXII Y Location: [place] [address] <Юлия Pacheco - Last Filed: 06/12/17 17:03> Problem List (1) Syncope Status: Acute History of Present Illness Date of Admission: 06/12/17 Chief Complaint: Syncope The patient is a 62 year old F who presents to the emergency room after syncopal episode this afternoon. Patient had bilateral blepharoplasty earlier this morning at [facility] with Dr. Salmeron. Surgery was without complications. Patient received Versed and fentanyl during the procedure. She was discharged with Tylenol as needed for pain. Patient states she was resting at home on the couch and complained of headache to her . She asked him to help her go to the bathroom. When he assisted her to get up she became very dizzy. They attempted to walk down the hallway and patient's fell to her knees. was able to help patient to the toilet. He went to get her water when she became unconscious and fell off of the toilet, hitting her head. Her called the squad at this time. at bedside states patient has had 2 syncopal episodes over approximate 10 year time period. She has never had workup for these episodes. Patient states she chronically notices she gets dizzy with standing up quickly. She was told by her primary doctor to drink more fluids and move slowly when changing positions. Patient had a laceration on the left brow bone which was repaired with sutures in the ER. Patient denies any cardiac history. She is very active and denies any chronic medical history. 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 HEENT: Denies: Head Aches, Sinus Congestion, Sinus Drainage Cardiovascular: Reports: Syncope. Denies: Chest Pain, Palpitations Respiratory: Denies: Cough, Shortness of breath at rest, Sputum production Gastrointestinal: Denies: Abdominal Pain, Nausea, Vomiting Genitourinary: Denies: Dysuria Musculoskeletal: Denies: Joint Pain, Joint Tenderness Skin: Reports: - - Bilateral high incisions. Denies: Rash, Wounds Neurological: Denies: Numbness, Tingling, Focal weakness Psychiatric: Denies: Anxiety, Depression, Homicidal Ideations, Suicidal Ideations Hematologic/ Lymphatic: Denies: Easy Bruising, Easy Bleeding VTE Information - Inpt Only VTE Present on Admission: No VTE Mechan Device Prophylaxis: SCD's VTE Pharm Prophylaxis ordered?: No Reason prophylaxis not ordered:: Treatment Not Indicated Patient Problems: Active and Suspected Problems Syncope (Acute) - Physical Exam General: Alert, Oriented x3, Cooperative HEENT: Atraumatic, PERRLA, EOMI, Normocephalic, - Neck: Supple, No JVD, Negative Carotid Bruits Lungs: Clear to auscultation, Normal air movement Cardiovascular: Regular rate, Regular Rhythm, Normal S1, Normal S2, No murmurs Abdomen: Bowel Sounds Present, Soft, Non Tender, Non-Distended Extremities: No clubbing, No cyanosis, No edema, Capillary Refill Less than 3 Seconds Skin: - - Bilateral eye incisions with sutures intact. Left cheekbone ecchymosis. Musculoskeletal: No Tenderness to Palpation of Joints or Extremities Neurological: Cranial nerves II-XII grossly intact, Neuro grossly intact Psych/Mental Status: Normal Affect, Appropriate Vital Signs Temp Pulse Resp BP Pulse Ox 97.4 F L 62 18 93/62 97 06/12/17 14:38 06/12/17 16:25 06/12/17 16:25 06/12/17 16:25 06/12/17 16:25 Oxygen Delivery Method Room Air Weight: 75.8 kg Body Mass Index (BMI) 28.6 Laboratory Tests Past 24 Hrs WBC 5.0 RBC 4.80 Hgb 14.8 Hct 43.5 MCV 90.6 MCH 30.8 MCHC 34.0 RDW 11.8 Assessment/Plan Active and Suspected Problems Syncope (Acute) 1. Syncope-suspect secondary to hypotension. EKG on admission without evidence of ischemia. Troponin negative 1. CT shows no acute process. Blood pressure on admission 82/58. Blood pressure by squad was noted to be 60/40. IV fluids. Orthostatic vitals negative. Repeat in a.m. Trend enzymes. Complete echocardiogram. Check TSH, mag. 2. Status post bilateral blepharoplasty/left eyebrow laceration- left eyebrow laceration secondary to syncopal episode repaired in ER with sutures. Surgical sutures bilateral eyelids intact. Dried blood noted. Patient's to bring in ointment and postop instructions from accounting reconciliation clerk which will be resumed. Tylenol as needed for pain. DVT prophylaxis-SCDs. Hold pharmacologic prophylaxis given eye surgery this a.m. This patient was seen by ROBBY Cisneros under the supervision of Dr. Feldman. <Eliceo Feldman - Last Filed: 06/12/17 18:34> History of Present Illness Seen and examined Patient felt dizzy and lightheaded and passed out. Patient did not eat or drink since yesterday for surgery today and also had Versed and fentanyl as mentioned above. She had similar syncopal episodes in the past when she was n.p.o. for her surgery [] Past Medical History Allergies No Known Allergies Allergy (Verified 06/12/17 14:44) - Physical Exam Lungs: Clear to auscultation, Normal air movement Cardiovascular: Regular rate, Regular Rhythm, Normal S1, Normal S2, No murmurs, - - Normal sinus rhythm on the monitor Vital Signs Temp Pulse Resp BP Pulse Ox 98.4 F 65 16 95/54 L 99 06/12/17 17:10 06/12/17 17:10 06/12/17 17:10 06/12/17 17:10 06/12/17 17:10 Oxygen Delivery Method Room Air Weight: 156 lb 15.506 oz Body Mass Index (BMI) 26.9 Laboratory Tests Past 24 Hrs Urine Color Pending Urine Clarity Pending Urine pH Pending Assessment/Plan This patient was seen in conjunction with PASTE WORKERЮлия. I have independently interviewed and examined the patient and reviewed pertinent history, examination findings, laboratory and plan of management. I have reviewed the note and agree with the documented findings with the few additional points. In brief, patient is admitted for In brief, patient is admitted for syncope most probably from hypotension as mentioned above. She never had echocardiogram at this in our system. We will do basic workup as mentioned above. I have discussed my assessment with PASTE WORKERЮлия and orders have been reviewed. Code Visit OBSV E AND M: [id number] Initial observation care L3 06/12/17 1703 <Electronically signed by Юлия BUSTAMANTE> Date Юлия BUSTAMANTE 06/12/17 1835<Electronically signed by Eliceo Feldman MD> Cosigner Signature: Date (if applicable) Eliceo Feldman MD CC: PASTE WORKERAudi Pacheco; Tani Carlson MD; Eliceo Feldman MD Signed LACTIC ACID Collected: 06/12/2017 Status: F Source: [place] 6:29 PM [facility] Order Comment: Yes/No query for Sepsis Lactate Rule Y TYPE CODE TESTS RESULT OUT OF RANGE REFERENCE UNITS LAB L503.6005 0.4-2.0 mmol/L Normal LACTIC ACID 1.2 Performed By: #### L503.6005 #### [facility] [address] [facility]. [place], [place], [address] TROPONIN-I Collected: 06/12/2017 Status: F Source: [place] 6:29 PM [facility] Order Comment: 'TROP' Serial specimen #1, #2, #3, or #4: 2 TYPE CODE TESTS RESULT OUT OF RANGE REFERENCE UNITS LAB L501.4010 <0.06 ng/mL Normal < 0.02 TROPONIN-I Result Comment: TROPONIN-I EXPECTED VALUES <0.05 NEGATIVE 0.06 - 0.59 AT RISK OF [place] > OR = 0.60 SUGGEST [place] Performed By: #### L501.4010 #### [facility] [address] [facility] [place], [place], [address] URINALYSIS, COMPLETE Collected: 06/12/2017 Status: F Source: [place] 6:15 PM [facility] Order Comment: Order Date: 06/12/17 How was Urine Obtained? CLEAN CATCH TYPE CODE TESTS RESULT OUT OF RANGE REFERENCE UNITS LAB L400.3000 Yellow COLOR Normal Yellow LAB L400.3050 Clear Normal CLARITY Clear LAB L400.3200 Normal mg/dl Normal GLUCOSE, UR Normal LAB L400.3300 Negative mg/dL Normal BILIRUBIN URINE Negative LAB L400.3400 Negative mg/dl Normal KETONE UR Negative LAB L400.3465 1.002-1.030 Normal SP.GR. DIPSTX 1.010 LAB L400.3550 5.0 - 8.0 pH UR Normal 7.0 LAB L400.3600 Negative mg/dl High PROT 15 DIPSTX LAB L400.3700 Normal mg/dl Normal UROBILI Normal LAB L400.3750 Negative Normal NITRITE UR Negative LAB L400.3780 Negative /ul Normal OCCULT BLOOD-UR Negative LAB L400.3800 Negative /ul High LEUK 25 ESTERASE LAB L400.4050 0-5 /hpf WBC Normal 0-5 SEEN LAB L400.4100 0-5 /hpf 0 Normal RBC-UA SEEN LAB L400.4150 5-10 /hpf SQUAM Normal EPI 0-5 SEEN LAB L400.4300 None Seen /hpf 0 Normal BACTERIA SEEN LAB L400.4350 <or=2+ /hpf 0 Normal MUCUS, URINE SEEN Performed By: #### L400.0001 #### [facility] [address] [facility] [place], [address] BRAIN/HEAD WITHOUT Observed: 06/12/2017 Status: F Source: [place] CONTRAST 3:09 PM [facility] Imaging Services [address] [place] [address] Brain/Head without Contrast MR#: [id number] Acct: [id number] Name: MEKA CHAUHAN Rep #: [id number] : 1955 F 62 From: Mare Levy MD PCP: Tani Carlson MD Status: REG ER Study: Brain/Head without Contrast Date of Exam: 06/12/17 Exam# [id number] Ordering Dr: Vanda Jett MD STUDY: CT BRAIN WITHOUT CONTRAST REASON FOR EXAM: Female, 62 years old. Syncopal episode and falling after ophthalmic surgery. Laceration above the left eyebrow. RADIATION DOSAGE (If Supplied By Facility): CTDIvol = ( 44.99 ) mGy, DLP = ( 779.24 ) mGycm TECHNIQUE: Transaxial CT imaging of the brain was performed without administration of intravenous contrast material. Individualized dose optimization techniques were used for this CT. COMPARISON: None. FINDINGS: Normal soft tissue structures. Normal calvarium. Normal size ventricles and extra-axial spaces for the patient's age. Normal white matter tracts of the cerebral hemispheres. Normal basal ganglia and thalami. Normal brainstem. Normal cerebellum. There is no intracranial hemorrhage. There are no findings of an acute ischemic infarction. Moderate mucosal thickening at the base of the right maxillary sinus CT/Brain/Head without Contrast IMPRESSION: Normal unenhanced CT scan of the brain. Moderate mucosal thickening at the base of the right maxillary sinus. Electronically Signed: Mare Levy MD at 15:56 EDT , Service support , CC: Vanda Jett MD; Tani Carlson MD Senior Financial Reporting Analyst: Signed CHEST 1 VIEW Observed: 06/12/2017 Status: F Source: [place] (PORTABLE) 3:09 PM [facility] Imaging Services [address] [place] [address] Chest 1 View (Portable) MR#: [id number] Acct: [id number] Name: MEKA CHAUHAN Rep #: [id number] : 1955 F 62 From: Huber Hermosillo MD PCP: Tani Carlson MD Status: REG ER Study: Chest 1 View (Portable) Date of Exam: 06/12/17 Exam# [id number] Ordering Dr: Vanda Jett MD STUDY: X-RAY CHEST REASON FOR EXAM: Female, 62 years old. SYNCOPE TECHNIQUE: Single AP portable view of the chest. COMPARISON: None. FINDINGS: The lungs are clear and expanded. There is no demonstrated pleural abnormality. Normal size heart. Normal mediastinum and carlyle. Normal visualized pulmonary arteries. Normal visualized aortic arch and descending thoracic aorta. Normal visualized thoracic spine. Normal visualized ribs, clavicles, and shoulders. There is no demonstrated abnormality of the visualized soft tissue structures of the upper abdomen. RAD/Chest 1 View (Portable) IMPRESSION: Normal x-ray examination of the chest. Electronically Signed: Huber Hermosillo MD at 16:07 EDT Tel , Service support , CC: Vanda Jett MD; Tani Carlson MD Senior Financial Reporting Analyst: Signed CBC W/DIFF, AUTOMATED Collected: 06/12/2017 Status: F Source: [place] 2:50 PM [facility] TYPE CODE TESTS RESULT OUT OF RANGE REFERENCE UNITS LAB L100.1000 4.4-11.0 K/mm3 Normal WBC 5.0 LAB L100.1200 4.2-5.4 M/mm3 Normal RBC 4.80 LAB L100.1300 12.0-15.0 g/dl Normal HGB 14.8 LAB L100.1400 37-47 % Normal HCT 43.5 LAB L100.1500 81-99 fL Normal MCV 90.6 LAB L100.1600 27.0-32.0 pg Normal MCH 30.8 LAB L100.1700 32-36 g/gl Normal MCHC 34.0 LAB L100.1810 11.6-14.6 % Normal RDW CV 11.8 LAB L100.1820 35.1-43.9 fl Normal RDW SD 38.9 LAB L100.1900 150-450 K/mm3 Normal PLT 170 LAB L100.2000 6.2-12.0 fl Normal MPV 9.3 LAB L100.2100 47-70 % Normal NEUT% 64.4 LAB L100.2200 19-41 % Normal LY% 26.6 LAB L100.2300 0-10 % Normal MONO% 7.4 LAB L100.2400 0-5 % Normal EO% 1.2 LAB L100.2500 0-1 % Normal BASO% 0.2 LAB L100.2550 0.0-0.9 % Normal IM GRAN % 0.200 Result Comment: IG% - Immature Granulocytes (promyelocytes, myelocytes and metamyelocytes) > 1% indicates that a LEFT SHIFT is Present. LAB L100.2620 2.0-7.7 X10 3/uL Normal Absolute Neut 3.2 LAB L100.2720 0.83-4.51 X10 3/ul Normal Absolute Lymph 1.32 Performed By: #### L100.0100 #### [facility] [address] [place], [place], [address] BASIC METABOLIC Collected: 06/12/2017 Status: F Source: [place] PROFILE (BMP) 2:50 PM [facility] Order Comment: 'TROP' Serial specimen #1, #2, #3, or #4: 1 TYPE CODE TESTS RESULT OUT OF RANGE REFERENCE UNITS LAB L501.0100 74-106 mg/dL High GLU 109 Result Comment: Fasting Glucose result from 100 to 125 mg/dL suggests IMPAIRED HOMEOSTASIS per A.D.A. criteria. Please note revised GLUCOSE reference range effective 2017. LAB L501.1000 7-18 mg/dL Normal BUN 12 LAB L501.1100 0.55-1.02 mg/dL Normal CREAT,SERUM 0.94 Result Comment: The validity of the calculated GFR AND GFRAA in patients over 70 years has not been determined. Clinical correlation is essential. LAB L501.1110 >60 mL/min Normal EST GFR 64 Result Comment: Non- GFR Calc LAB L501.1115 >60 mL/min Normal EST GFR - AA 78 Result Comment: GFR Calc LAB L501.1255 ml/min Normal Estimated CRCL 54.96 LAB L501.1300 10-20 RATIO Normal BUN/CRE 12.7 LAB L501.2200 8.5-10 mg/dL Normal .1 CA 8.6 LAB L501.5300 136-14 mmol/L Normal 5 NA 140 LAB L501.5600 3.5-5. mmol/L Normal 1 K 3.5 LAB L501.5900 98-107 mmol/L Normal CL 102 LAB L501.6100 21.0-3 mmol/L Normal 2.0 CO2 31.0 LAB L501.6200 5-15 Normal GAP 7 Performed By: #### L500.2500, L501.4010 #### [facility] [address] [place], [place], [address] TROPONIN-I Collected: 06/12/2017 Status: F Source: [place] 2:50 PM [facility] Order Comment: 'TROP' Serial specimen #1, #2, #3, or #4: 1 TYPE CODE TESTS RESULT OUT OF RANGE REFERENCE UNITS LAB L501.4010 <0.06 ng/mL Normal < 0.02 TROPONIN-I Result Comment: TROPONIN-I EXPECTED VALUES <0.05 NEGATIVE 0.06 - 0.59 AT RISK OF [place] > OR = 0.60 SUGGEST [place] Performed By: #### L500.2500, L501.4010 #### [facility] [address] [facility] [place], [address] MAGNESIUM Collected: 06/12/2017 Status: F Source: [place] 2:50 PM [facility] CODE TESTS RESULT OUT OF RANGE REFERENCE UNITS LAB L501.5200 1.6-2.6 mg/dL Normal MG 2.1 Performed By: #### L501.5200, L501.9520 #### [facility] [address] [place], [address] THYROID STIM HORMONE Collected: 06/12/2017 Status: F Source: [place] (TSH) 2:50 PM [facility] CODE TESTS RESULT OUT OF RANGE REFERENCE UNITS LAB L501.9520 0.358-3.74 uIU/mL High TSH 8.33 Performed By: #### L501.5200, L501.9520 #### [facility] [address] [place], [address] HEMOGLOBIN A1C Collected: 02/16/2017 Status: F Source: [place] 8:57 AM [facility] REPOSITORY TYPE CODE TESTS RESULT OUT OF REFERENCE UNITS RANGE LAB HGBA1C 4.3-5.6 % Hemoglobin A1c 5.3 LAB HBA0 mg/dL Est. Average Glucose 105 Result Comment: eAG: (Estimated average glucose) is a calculated value from HgbA1c and is in home sales representative of the average blood glucose level in the last 2-3 month period. Performed By: #### HBA1C #### [facility] [address] [place], [place] [address] PROGRESS Observed: 02/16/2017 Status: COMPLETED Source: [place] 8:27 AM [facility] REPOSITORY HNO ID: [id number] Author: Maria Eugenia Tavarez) Robyn Service: (none) Author Type: Physician Type: Progress Notes Filed: 02/16/2017 8:49 AM Note Text: Chief Complaint Patient presents with: peripheral retinal hemorrhages - both eyes: Main concern from Dr. Shanks/ carotids HPI Meka Chauhan is a 62 year old female who presents here today for discussion of retinal hemorrhage diagnosed by Dr. Shanks. Patient states that she was in to see optho about a month ago for regular checkup and they found hemorrhage bilaterally and wanted her to come in for evaluation of her carotids because it is unusual for people to have bilateral findings. States that they did not recommend any further treatment and told her to follow up with this office for further workup. No follow up appointment scheduled. Discussed possible causes including: HTN, DM, heavy lifting, injury and she denies all of the above. Has not had significant changes in vision in the last month. Denies stroke symptoms or syncope. Past medical history, appointments, medications, allergies reviewed. Previous Medical History PAST MEDICAL HISTORY Diagnosis Date - Bunion, left - DDD (degenerative disc disease), cervical - DDD (degenerative disc disease), lumbar - Hyperlipidemia mild - Lumbar radiculopathy - Overweight - Perforated diverticulum - Pneumoperitoneum - Vitamin D deficiency Previous Surgical History PAST SURGICAL HISTORY Procedure Laterality Date - BACK SURGERY HX 09/2009 laminectomy L4 and L5 - COLONOSCOP W/ OR W/O [facility] SPEC 08/2000 flex sigmoid - COLONOSCOP W/ OR W/O [facility] SPEC 03/24/2007 - LIGATE FALLOPIAN TUBE Tubal ligation - PAST SURGICAL HISTORY OF 01/22/14 endocervical polypectomy, D AND C , hysteroscopy - PAST SURGICAL HISTORY OF 04/17/14 diagnostic laparoscopy; duodenal diverticulectomy; duodenostomy tube - PAST SURGICAL HISTORY OF 2011 C2, C3, C4 - REMOVAL ADENOIDS,PRIMARY,<12 Y/O Adenoidectomy - REMOVAL GALLBLADDER 2001 Cholecystectomy - REMOVAL OF TONSILS,<12 Y/O Tonsillectomy Family History FAMILY HISTORY Problem Relation Age of Onset - Breast Cancer Mother also throat and lung cancer - Cancer Father PROSTRATE - PARKINSONS [OTHER] Father - Diabetes Maternal Grandmother - Hypertension Sister - Breast Cancer Sister - Breast Cancer Paternal Aunt Patient Allergies ALLERGIES No Known Allergies Current Medications Current Outpatient Prescriptions on File Prior to Visit: cholecalciferol (VITAMIN D-3) 2,000 unit tablet Take 2,000 Units by mouth once daily. THERAPEUTIC MULTIVITAMIN TAB Take one(1) tablet daily. FOLIC ACID 1 MG TAB take two a day No current facility-administered medications on file prior to visit. Social History Social History Marital status: Spouse name: Lloyd Escoto Years of education: 18+ Number of children: 1 Occupational History Occupation Employer Comment [employer]* Social History Main Topics Smoking status: Never Smoker Smokeless status: Never Used Alcohol use: Yes 1.0 oz/week Comment: rare Drug use: No Sexual activity: Yes Partners with: Male control/protection: Tubal Ligation Review of Symptoms REVIEW OF SYSTEMS GENERAL: No weight loss, malaise or fevers RESPIRATORY: Negative for cough, hemoptysis, wheezing, COPD, dyspnea or shortness of breath CARDIOVASCULAR: Negative for chest pain, leg swelling, hypertension, CHF or palpitations GI: No nausea, vomiting, or diarrhea SKIN: Negative for lesions, rash, and itching EXAM: BP 108/78 Pulse 64 Resp 12 Wt 73.5 kg (162 lb) LMP 06/07/2010 BMI 28.7 kg/m2 General Appearance: Well appearing, alert, in no acute distress, well-hydrated, well nourished.. Skin: Skin color, texture, turgor normal, no suspicious rashes or lesions. Neck: Supple, no adenopathy; thyroid symmetric, normal size, no bruits. Normal carotid pulse bilaterally. Lungs: Lungs clear to auscultation. No wheezing, rhonchi, rales. Heart: RRR without murmur, gallop, or rubs. No ectopy. Health Maintenance List PAP EVERY 5 YEARS due on 06/02/2014 HPV EVERY 5 YEARS due on 06/02/2014 MAMMOGRAM due on 01/31/2018 DIABETES SCREEN due on 09/15/2019 LIPID SCREEN due on 09/14/2021 TETANUS due on 03/28/2025 INFLUENZA Completed HEPATITIS C SCREENING Completed ASSESSMENT/PLAN: 1. Retinal hemorrhage noted on examination of both eyes - ICD9: 362.81, ICD10: H35.63 Will refer patient to optho for further evaluation of hemorrhage, evaluate for carotid stenosis, and rule out undiagnosed DM. - CONSULT TO OPHTHALMOLOGY - US CAROTID ARTERIES [facility] - HGB A1C Maria Eugenia Carlson MD CNOV Observed: 02/16/2017 Status: COMPLETED Source: [place] 8:20 AM [facility] REPOSITORY Office Visit (FAMPWS) MEKA CHAUHAN ([id number]) 1955 F Date Time Provider Department 02/16/17 8:20 AM MARIA EUGENIA CARLSON) NIMO During your visit today, we recorded the following information about you: Pulse Respiration Blood pressure Weight 64/minute 12/minute 108/78 73.5 kg Maria Eugenia Carlson MD 02/16/2017 8:49 AM Signed Chief Complaint Patient presents with: peripheral retinal hemorrhages - both eyes: Main concern from Dr. Shanks/ carotids HPI Meka Chauhan is a 62 year old female who presents here today for discussion of retinal hemorrhage diagnosed by Dr. Shanks. Patient states that she was in to see optho about a month ago for regular checkup and they found hemorrhage bilaterally and wanted her to come in for evaluation of her carotids because it is unusual for people to have bilateral findings. States that they did not recommend any further treatment and told her to follow up with this office for further workup. No follow up appointment scheduled. Discussed possible causes including: HTN, DM, heavy lifting, injury and she denies all of the above. Has not had significant changes in vision in the last month. Denies stroke symptoms or syncope. Past medical history, appointments, medications, allergies reviewed. Previous Medical History PAST MEDICAL HISTORY Diagnosis Date - Bunion, left - DDD (degenerative disc disease), cervical - DDD (degenerative disc disease), lumbar - Hyperlipidemia mild - Lumbar radiculopathy - Overweight - Perforated diverticulum - Pneumoperitoneum - Vitamin D deficiency Previous Surgical History PAST SURGICAL HISTORY Procedure Laterality Date - BACK SURGERY HX 09/2009 laminectomy L4 and L5 - COLONOSCOP W/ OR W/O [facility] SPEC 08/2000 flex sigmoid - COLONOSCOP W/ OR W/O [facility] SPEC 03/24/2007 - LIGATE FALLOPIAN TUBE Tubal ligation - PAST SURGICAL HISTORY OF 01/22/14 endocervical polypectomy, D ANDamp; C , hysteroscopy - PAST SURGICAL HISTORY OF 04/17/14 diagnostic laparoscopy; duodenal diverticulectomy; duodenostomy tube - PAST SURGICAL HISTORY OF 2011 C2, C3, C4 - REMOVAL ADENOIDS,PRIMARY,ANDlt;14 Y/O Adenoidectomy - REMOVAL GALLBLADDER 2001 Cholecystectomy - REMOVAL OF TONSILS,ANDlt;14 Y/O Tonsillectomy Family History FAMILY HISTORY Problem Relation Age of Onset - Breast Cancer Mother also throat and lung cancer - Cancer Father PROSTRATE - PARKINSONS [OTHER] Father - Diabetes Maternal Grandmother - Hypertension Sister - Breast Cancer Sister - Breast Cancer Paternal Aunt Patient Allergies ALLERGIES No Known Allergies Current Medications Current Outpatient Prescriptions on File Prior to Visit: cholecalciferol (VITAMIN D-3) 2,000 unit tablet Take 2,000 Units by mouth once daily. THERAPEUTIC MULTIVITAMIN TAB Take one(1) tablet daily. FOLIC ACID 1 MG TAB take two a day No current facility-administered medications on file prior to visit. Social History Social History Marital status: Spouse name: Lloyd Escoto Years of education: 18+ Number of children: 1 Occupational History Occupation Employer Comment [employer]* Social History Main Topics Smoking status: Never Smoker Smokeless status: Never Used Alcohol use: Yes 1.0 oz/week Comment: rare Drug use: No Sexual activity: Yes Partners with: Male control/protection: Tubal Ligation Review of Symptoms REVIEW OF SYSTEMS GENERAL: No weight loss, malaise or fevers RESPIRATORY: Negative for cough, hemoptysis, wheezing, COPD, dyspnea or shortness of breath CARDIOVASCULAR: Negative for chest pain, leg swelling, hypertension, CHF or palpitations GI: No nausea, vomiting, or diarrhea SKIN: Negative for lesions, rash, and itching EXAM: BP 108/78 Pulse 64 Resp 12 Wt 73.5 kg (162 lb) LMP 06/07/2010 BMI 28.7 kg/m2 General Appearance: Well appearing, alert, in no acute distress, well-hydrated, well nourished.. Skin: Skin color, texture, turgor normal, no suspicious rashes or lesions. Neck: Supple, no adenopathy; thyroid symmetric, normal size, no bruits. Normal carotid pulse bilaterally. Lungs: Lungs clear to auscultation. No wheezing, rhonchi, rales. Heart: RRR without murmur, gallop, or rubs. No ectopy. Health Maintenance List PAP EVERY 5 YEARS due on 06/02/2014 HPV EVERY 5 YEARS due on 06/02/2014 MAMMOGRAM due on 01/31/2018 DIABETES SCREEN due on 09/15/2019 LIPID SCREEN due on 09/14/2021 TETANUS due on 03/28/2025 INFLUENZA Completed HEPATITIS C SCREENING Completed ASSESSMENT/PLAN: 1. Retinal hemorrhage noted on examination of both eyes - ICD9: 362.81, ICD10: H35.63 Will refer patient to optho for further evaluation of hemorrhage, evaluate for carotid stenosis, and rule out undiagnosed DM. - CONSULT TO OPHTHALMOLOGY - US CAROTID ARTERIES [facility] - HGB A1C Maria Eugenia Carlson MD Referring Provider: SELF [200] Allergies As of Date: 02/16/2017 (No Known Allergies) Date Reviewed: 02/16/2017 Reviewed by: Juan Antonio Moya Ma - Fully Assessed Reason for Visit: peripheral retinal hemorrhages - both eyes [Other] Cmt: Main concern from Dr. Shanks/ carotids Primary Visit Diagnosis:Retinal hemorrhage noted on examination of both eyes [H35.63] Order(s):CONSULT TO OPHTHALMOLOGY [9024] Order #: [id number]: 1 CAROTID ARTERIES [facility] [[id number]] Order #: [id number] FUTURE HGB A1C [BMPDU8K] Order #: [id number] FUTURE Prescriptions as of 02/16/2017 Sig: CHOLECALCIFEROL (VITAMIN D3) * Take 2,000 Units by mouth onc* THERAPEUTIC MULTIVITAMIN TABL* Take one(1) tablet daily. FOLIC ACID 1 MG TABLET take two a day Problem List As Of Date 02/16/2017 Noted Resolved Radiculopathy, lumbar region [M54.16] INVALID FOR* More... Vitamin d deficiency [E55.9] INVALID FOR* More... Pneumoperitoneum [K66.8] INVALID FOR*09/26/2016 More... Perforated diverticulum of duodenum [K57.00] INVALID FOR*09/26/2016 Hyperlipidemia [E78.5] More... Encounter Status:Closed by MARIA EUGENIA CARLSON MD on 02/16/17 SCREENING MAMM (CAD), Observed: 01/31/2017 Status: F Source: [place] 9:33 AM [facility] [place] [facility] Imaging Services [address] [place] [id number] SCREENING MAMM (CAD), BILAT MR#: [id number] Acct: [id number] Name: MEKA CHAUHAN Rep #: [id number] : 1955 F 61 From: Toñito Garcia MD PCP: Tani Carlson MD Status: REG CLI Study: SCREENING MAMM (CAD), BILAT Date of Exam: 01/31/17 Exam# [id number] Ordering Dr: Amina Jasmine MD MAMMOGRAPHY - BILATERAL SCREENING REASON FOR EXAM: Female, 61 years old. Routine annual screening examination. PERTINENT HISTORY: Sister with breast cancer. Mother with breast cancer. Aunt with breast cancer. TECHNIQUE: Digital bilateral breast shira (3D mammographic acquisition) in the CC and MLO projections. 2-D mediolateral oblique (MLO) and craniocaudad (CC) views of both breasts were obtained. CAD: Full Field Digital Mammography with Computer Added Detection was performed. COMPARISON: Comparison is made with prior examination of October 24, 2015 and August 10, 2013. FINDINGS: Breast Composition: The breasts are heterogeneously dense, which may obscure small masses. There are no dominant masses or suspicious calcifications. Stable 5.9 mm x 6 mm well-defined nodule in the mid outer portion of the right breast. This is unchanged. No other significant abnormalities are identified. There has been no significant change since the prior study. HPBI/SCREENING MAMM (CAD), BILAT IMPRESSION: Stable bilateral screening mammogram. Yearly follow-up mammogram recommended. (A) ASSESSMENT CATEGORY: BIRADS Category 2: Benign. A letter regarding these results will be sent to the patient by the facility within 30 days. Approximately 10% of breast cancers are not detected by mammography. A normal mammogram should not delay biopsy of a clinically suspicious abnormality. [id number] Electronically Signed: Toñito Garcia MD at 13:04 EST Tel [phone], Service support , CC: Tani Carlson MD; Amina Jasmine MD Senior Financial Reporting Analyst: Signed ALLERGIES ALLERGIES DATE TYPE / CODE NAME / CODE REACTION SEVERITY SOURCE 01/24/2018 Drug No Known Unknown [facility] Allergy/416 Allergies/S70768 Hospital 465680(SNOM 0388(RXNORM) Repository ED CT) Drug NO KNOWN [facility] Class/83684 ALLERGIES Main [place] 1003(SNOMED Repository CT) ENCOUNTERS ENCOUNTERS ADMIT/DISCHARGE ACCOUNT ADMITTING ENCOUNTER LOCATION SOURCE NUMBER CLASS 01/24/2018/01/25/20 [id number] Ambulatory BMSBuilding:B [place] [address] MS.[facility] Repository 01/09/2018 [id number] General acute hospital ing:[facility]SPEC Repository 11/07/2017/11/08/19 [id number] Ambulatory BMSBuilding:B [place] [address] MS.[facility] Repository 11/05/2017/11/06/19 [id number] Ambulatory [address] Repository 10/10/2017/10/11/[id number] ing:EN Repository 10/10/2017 [id number] Ambulatory BMSBuilding:B [place] MS.CF.[facility] Repository 09/30/2017/10/01/19 [id number] Ambulatory BMSBuilding:B [place] [address] MS.[facility] Repository 09/30/2017/10/01/19 [id number] Ambulatory [address] Repository 09/26/2017/09/28/19 [id number] Ambulatory [address] Repository 06/17/2017 [id number] General acute hospital ing:[facility] Repository 06/17/2017 [id number] Ambulatory BMSBuilding:W [facility] Repository 06/12/2017/06/14/19 [id number] [facility], Ambulatory [address] ing:PCURoom: Repository [id number]: 1 06/12/2017 [id number] [place], Ambulatory BMSBuilding:[place] MS.[facility] Repository 06/12/2017 [id number] [facility], Ambulatory BMSBuilding:[place] MS.[facility] Repository 06/12/2017/06/14/19 [id number] Ambulatory BMSBuilding:W [place] [facility] Repository 02/21/2017/02/21/19 [id number] Ambulatory [address] Repository 02/16/2017/02/16/19 [id number] Ambulatory [address] Repository 02/16/2017/02/16/19 [id number] Ambulatory [address] Repository 01/31/2017 [id number] General acute hospital ing:BI Repository PAYERS PAYERS ENCOUNTER GUARANTOR PAYER SUBSCRIBER SOURCE 01/24/2018 MEKA Shea Primary MEKA Shabbir [place] [id number] STAHR Insurance:[employer] HAMMERDOB: [place], [place] icy Number: [id number] Hospital 18059Jxa: 330 [id number] Repository [phone] () Date:4903-70-96DN[address] [address]CH: 01/24/2018 Secondary NOT GIVENUNK [place] Insurance:SELF PAY [facility] Number: Effective Repository Date:2018-01-24 01/09/2018 MEKA K Primary MEKA Shabbir [place] [id number] STAHR Insurance:[employer] HAMMERDOB: [place], [place] icy Number: [id number] Hospital 719[address]Trw: ([phone] [id number] Repository [phone] () Date:1706-33-23VU[address] [address]DQ: 01/09/2018 Secondary NOT GIVENUNK [place] Insurance:SELF PAY [facility] Number: Effective Repository Date:2018-01-09 11/07/2017 MEKA K Primary MEKA K [place] [id number] STAHR Insurance:[employer] [place] Number: [id number] Hospital [address]Npq: (330 [id number] Repository [phone] (HP) Date:8205-21-47HH [address] [place] [address]XW: 11/07/2017 Secondary NOT GIVENUNK [place] Insurance:SELF PAY [facility] Number: Effective Repository Date:2017-11-07 10/10/2017 MEKA K Primary MEKA K [place] [id number] STAHR Insurance:[employer] [place]MERDOB[place] Number: [id number] Hospital 95[address]Phk: (330 [id number] Repository [phone] (HP) Date:4200-94-45GC [address] [address]UC: 10/10/2017 Secondary NOT GIVENUNK [place] Insurance:SELF PAY [facility] Number: Effective Repository Date:2017-09-30 10/10/2017 MEKA K Primary MEKA K [place] [id number] STAHR Insurance:[employer] [place]DOB: [place] Number: [id number] Hospital [id number]: (330 [id number] Repository [phone] () Date:8711-77-46ZT [facility] [address] [place] [address]LO: 10/10/2017 Secondary NOT GIVENUNK [place] Insurance:SELF PAY [facility] Number: Effective Repository Date:2017-10-10 09/30/2017 MEKA K Primary MEKA K [place] [id number] STAHR Insurance:[employer] HAMMERDOB: [place] Number: [id number] Hospital [address]Tui: 330 [id number] Repository [phone] (HP) Date:3093-22-06QK [address] [address]VP: 09/30/2017 Secondary NOT GIVENUNK [place] Insurance:SELF PAY [facility] Number: Effective Repository Date:2017-09-30 06/17/2017 MEKA Shea Primary NOT GIVENUNK [place] [id number] STAHR Insurance:SELF PAY [facility] [address]Bvh: Number: Effective Repository [phone] Date:2017-06-13 () 06/17/2017 LLOYD Ordoñez Primary MEKA Shea [place] [id number] STAHR Insurance:[employer] HAMMERDOB: [facility] [place] icy Number: [id number] Hospital [address]22[address]Fdz: 330 [id number] Repository [phone] () Date:1137-76-91BN [facility] [address] [place] [address]OM: 06/17/2017 Secondary NOT GIVENUNK [place] Insurance:SELF PAY [facility] Number: Effective Repository Date:2017-06-17 06/12/2017 LLOYD Ordoñez Primary MEKA Shea [place] [id number] STAHR Insurance:[employer] HAMMERDOB: [facility] [place] icy Number: [id number] Hospital [address]Tfw: 330 [id number] Repository [phone] () Date:9600-54-83UI [facility] [address] [place] [address]AS: 06/12/2017 Secondary NOT GIVENUNK [place] Insurance:SELF PAY [facility] Number: Effective Repository Date:2017-06-12 06/12/2017 LLOYD Ordoñez Primary MEKA Shea [place] [id number] STAHR Insurance:[employer] HAMMERDOB: [facility] [place] icy Number: [id number] Hospital [address]Aat: 330 [id number] Repository [phone] () Date:8470-23-21PF [facility] [address] [place] [address]XA: 06/12/2017 Secondary NOT GIVENUNK [place] Insurance:SELF PAY [facility] Number: Effective Repository Date:2017-06-12 06/12/2017 LLOYD Ordoñez Primary MEKA Pelae[place] [id number] STAHR Insurance:[employer] HAMMERDOB: [facility] [place] icy Number: [id number] Hospital [address]Gxh: 330 [id number] Repository [phone] (HP) Date:8752-12-90MI [address] [place] [address]NT: 06/12/2017 Secondary NOT GIVENUNK [place] Insurance:SELF PAY [facility] Number: Effective Repository Date:2017-06-12 06/12/2017 LLOYD Ordoñez Primary MEKA Pelaez [id number] STAHR Insurance:[employer] HAMMERDOB: [place], [place] icy Number: [id number] Hospital [address]Pby: 330 [id number] Repository [phone] (HP) Date:0003-62-26DY [address] [place] [phone]: 06/12/2017 Secondary NOT GIVENUNK [place] Insurance:SELF PAY [facility] Number: Effective Repository Date:2017-06-12 01/31/2017 Lloyd Ordoñez Primary MEKA Pelaez [id number] Insurance:[employer] HAMMERDOB: [place], [place] icy Number: [id number] Hospital [address]Twy: 330 [id number] Repository [phone] (HP) Date:1523-59-75SP [address] [place] [address]ZW: 01/31/2017 Secondary NOT GIVENUNK [place] Insurance:SELF PAY [facility] Number: Effective Repository Date:2016-12-31
== END ==
LOC: WOBLAB 11:57 → LABSPEC 11:57
PROVIDERS: Family Provider Family Medicine; PCP Family Medicine; Visit Provider Obstetrics & Gynecology
DX: Z12.4 Encounter for screening for malignant neoplasm of cervix (principal)
CPT/HCPCS: 88175; G0145

== ENCOUNTER → 2018-01-31 14:19 | Outpatient (CLI) | payer OTHER, SELFPAY ==
[2018-01-31 09:03] VITALS: BMI 28.3
== END ==
PROVIDERS: Family Provider Family Medicine; PCP Family Medicine; Referring Provider Physician Assistant Surgical; Visit Provider Physician Assistant Surgical
DX: J02.9 Acute pharyngitis, unspecified (principal)
CPT/HCPCS: 87081

== ENCOUNTER → 2018-02-20 10:33 | Outpatient (CLI) | payer OTHER, SELFPAY ==
[2018-01-31 09:03] VITALS: BMI 28.3
--- NOTE | 2018-02-20 10:36 | BI_ITS ---
MAMMOGRAPHY - BILATERAL SCREENING REASON FOR EXAM: Female, 63 years old. Routine annual screening examination. PERTINENT HISTORY: Sister with breast cancer. Mother with breast cancer. Aunt with breast cancer. TECHNIQUE: Digital bilateral breast shira (3D mammographic acquisition) in the CC and MLO projections. 2-D mediolateral oblique (MLO) and craniocaudad (CC) views of both breasts were obtained. CAD: Full Field Digital Mammography with Computer Added Detection was performed. COMPARISON: Comparison is made with prior study dated October 24, 2015 and January 31, 2017. FINDINGS: Breast Composition: The breasts are heterogeneously dense, which may obscure small masses. There are no dominant masses or suspicious calcifications. Stable 5.9 mm x 6 mm well-defined nodule in the mid outer portion of the right breast. This most likely represents a small lymph node. No other significant abnormalities are identified. There has been no significant change since the prior study. BI/SCREENING MAMM (CAD), BILAT IMPRESSION: Stable bilateral screening mammogram. Yearly follow-up mammogram recommended. (A) ASSESSMENT CATEGORY: BIRADS Category 2: Benign. A letter regarding these results will be sent to the patient by the facility within 30 days. Approximately 10% of breast cancers are not detected by mammography. A normal mammogram should not delay biopsy of a clinically suspicious abnormality. [id number] Electronically Signed: Toñito Garcia MD at 8:24 EST Tel [phone], Service support ,
== END ==
PROVIDERS: Family Provider Family Medicine; PCP Family Medicine; Referring Provider Obstetrics & Gynecology; Visit Provider Obstetrics & Gynecology
DX: Z12.31 Encounter for screening mammogram for malignant neoplasm of breast (principal)
CPT/HCPCS: 77063; 77067

== ENCOUNTER → 2018-04-08 09:16 | Outpatient (CLI) | payer OTHER, SELFPAY ==
[2018-01-31 09:03] VITALS: BMI 28.3
--- NOTE | 2018-04-08 09:20 | MRI_ITS ---
STUDY: BILATERAL BREAST MR WITHOUT AND WITH CONTRAST REASON FOR EXAM: Female, 63 years old. Family history of breast cancer in mother and aunt. Inconclusive mammogram with dense breasts. TECHNIQUE: Multi-sequence multi-echo imaging of both breasts was performed with a dedicated breast coil. T1-weighted and T2-weighted images were performed before the administration of contrast. T1-weighted images were also performed after the administration of Gadavist 7 IV without complications. COMPARISON: Screening mammograms dated February 20, 2018 and January 31, 2017. FINDINGS: RIGHT BREAST: The breast tissue is fatty with minimal background enhancement. There are multiple small cysts of varying sizes. There are no abnormal enhancing masses or areas of non-mass enhancement in the right breast. LEFT BREAST: The breast tissue is fatty with minimal background enhancement. There are multiple small cysts of varying sizes. There are no abnormal enhancing masses or areas of non-mass enhancement in the left breast. There are no enlarged or abnormal lymph nodes. There is no abnormality in the visualized regions of the chest or liver. MRI/Breast Bilateral W/O and W IMPRESSION: Multiple small cysts in both breasts. No other abnormality is present. Yearly screening mammogram recommended. CATEGORY: BIRADS Category 2: Benign. A letter regarding these results will be sent to the patient by the facility within 30 days. Electronically Signed: Yuriy Rock MD at 14:48 EST , Service support ,
[2018-04-08 10:01] LABS: CREATININE FINGERSTICK 0.6 mg/dL (0.55-1.02); EGFR FINGERSTICK > 60.0000 mL/min (>60)
== END ==
PROVIDERS: Family Provider Family Medicine; PCP Family Medicine; Referring Provider Obstetrics & Gynecology; Visit Provider Obstetrics & Gynecology
DX: R92.2 Inconclusive mammogram (principal)
CPT/HCPCS: 77049; A9585; A4216; C8908

== ENCOUNTER 2018-09-18 09:00 | Outpatient (RCR) | payer OTHER, SELFPAY ==
[2018-05-19 10:09] VITALS: BMI 28.3
--- NOTE | 2018-08-18 13:16 | HP.PTEVAL ---
Patient's Visit Information MEKA CHAUHAN is a 63 year old F referred to Physical Therapy by ROBBY Gagnon with a diagnosis of LOW BACK PAIN. Date of Evaluation: 08/18/18 Physical Therapist: Andrei Mayes, PT, Cert MDT, OCS - Visit Plan Frequency: 2x /Week Duration: 4 Weeks Plan: PT INTERVENTIONS AQUATIC PT DLS ,POSTURAL EX'S,LE STRENGTHENING /FLEXABILITY - Subjective Findings: This 63 y/o female presents to physical therapy with back pain and leg symptoms for about 1 month. Patient has h/o lumbar fusion Sep 2009 ,cervical fusion 2011 ,bowel rupture s/p suirgery. Patient seen DR had x-rays looked good,presribed predisone which helped pain then pain return . Patient recommended Aquatic PT. Symptoms worse in the morning and night . Alleviating walking,standing ,ADL'S.About 1/2 to sleep does good,then 1/2 hr in morning. Patient doesnt affect sleeps. Bowel/bladder good. Denies parathesia/tingling. Patient has isolated heel pain. Patient ex's daily with walking. Coughing /sneezing. In morning ,pain symmtrical back and right thigh. Patient symptoms affects QOL and housework task. SOCIAL: . VOCATION: retired. - Objective POSTURE: mild foward posture. GAIT: reciprocal pattern. NEURO:denies parathesia/tingling ,reflexes L3-4,L4-5,L5-S1 3/3. SYMMTRIES: align. FLEXABILITY: hams min tight. MMT: quads/hams 4/5,hip flexion 4/5,ankle 5/5. LUMBAR ROM : flexion min loss,extension min loss,side glides min loss. PALAPTION: unremarkable - Special Tests L/S Slump test left side: Negative L/S Slump test right side: Negative L/S Left Straight Leg Raise: Positive L/S Right Straight Leg Raise: Positive - Goals Goal 1:: Independant with HEP. Goal Time Frame: 4-6 Weeks Goal 2:: Patient to be Indepedant with posture/body mechanics. Goal Time Frame: 4-6 Weeks Goal 3:: Patient to decrease symptoms night- morning to improve function. Goal Time Frame: 4-6 Weeks Goal 4:: Patient to lumbar ROM for function of recovery. Goal Time Frame: 4-6 Weeks Goal 5:: Patient to improve back owestrey score by 5 points to improve function. Goal Time Frame: 4-6 Weeks - Rehabilitation Potential Physical Therapy Diagnosis: This patient has lumbar fusiion 2010 ,most recent patient has been expeeriencing LBP and right thigh symptoms worse in the morning and night with poor core strength. Rehabilitation Potential: Good - Anticipated Interventions Patient/Client Instruction: Educate patient on: Condition, Plan of Care For the Purpose of:: To decrease pain, To increase ROM, To improve muscle performance and motor function, To increase tolerance to activity/condition/position, To improve ability of physical actions for home/community/work/leisure, To improve health of tissue, To decrease soft tissue restriction, To increase flexibility/ROM, To improve endurance, To reduce risk of recurrence, To improve ability to perform tasks related to life management Therapeutic Exercise to Include: Strength training, Postural training, Flexibilty training, In an aquatic setting, Dynamic Lumbar Stabilization For the Purpose of:: To decrease pain, To improve muscle performance and motor function, To increase tolerance to activity/condition/position, To improve ability of physical actions for home/community/work/leisure, To improve health of tissue, To decrease soft tissue restriction, To increase flexibility/ROM, To reduce risk of recurrence, To improve ability to perform tasks related to life management Thank you for the opportunity to evaluate your patient. For Medicare and Medicare HMO plans, please review the plan of care and approve it. It will need to be FAXED BACK to us at [phone] for Medicare purposes. For Medicare only, by signing this I certify the plan of care. Please let me know if there are questions or concerns regarding this plan of care. Physician Signature: Date:
--- NOTE | 2018-11-26 15:24 | HP.PTDCSUM ---
HP - PT D/C Summary It has been my pleasure to treat MEKA CHAUHAN under orders from GLYNN GagnonC, for the diagnosis of LOW BACK PAIN for a total of 9 visit(s). Discharge Date: Please see the following information for a summary of their discharge status. - Subjective Subjective: Patient right thigh pain and right LBP intermittant. Patient reports seeing DR next wk. Leg is weaker on right. Patient is ative and less pain . Pain is alot less at night . - Pain Lumbar Spine Pain Intensity (Out of 10): 2 L foot Pain Intensity (Out of 10): 3 - Overall Improvement % Improvement: 90 - Objective Objective/Function: POSTURE: WFL. GAIT: reciprocal pattern. MMT: quads/hams 4/5 ,hip flexion 4/5,ankle 5/5. LUMBAR ROM: flexion min loss ,extension min loss ,side gides min loss. FELXABLITY: : hams mi tight - Goals Goal 1:: Independant with HEP. Goal 2:: Patient to be Indepedant with posture/body mechanics. Goal 3:: Patient to decrease symptoms night- morning to improve function. Goal 4:: Patient to lumbar ROM for function of recovery. Goal 5:: Patient to improve back owestrey score by 5 points to improve function. - Plan Plan: RTD - D/C Information If there are questions or concerns regarding this patient's physical therapy, please feel free to call me at [phone]. Thank you for the referral of this patient. Sincerely, Andrei Mayes, PT, Cert MDT, OCS
== END 2018-09-18 19:00 | disposition home or self-care (01) ==
LOC: PT 09:00
PROVIDERS: Family Provider Family Medicine; PCP Family Medicine; Referring Provider Nurse Practitioner; Visit Provider Nurse Practitioner
DX: M54.5 Low back pain (principal)
CPT/HCPCS: 97113; 97162; 97530